=== PATIENT | female | born 1985 | race Caucasian/White ===

== ENCOUNTER 2019-09-05 12:05 | Observation (INO) ==
--- NOTE | 2019-09-05 13:02 | Emergency Department Note ---
Entered by Shon Barba acting as a scribe for History of Present Illness General Chief complaint: Infection, Wound Stated complaint: RASH,OPEN WOUNDS, DOCTOR THINGS SHE SEPTIC Time Seen by Provider: 09/05/19 12:39 Source: patient and other (family practice nurse practitioner) History of Present Illness Onset (ago): unknown (a while ago) Location: upper extremity Pain Consistency: + constant Maximum Pain Intensity: 9 Quality: + other (rash) Associated symptoms: + other (Positive for SOB, chils, and unusual vaginal spotting.) The patient is a 34 year old female who presents to the emergency department with complaints of a constant rash beginning a while ago. Per family practice nurse practitioner, the patient started retaining fluids two months ago. She states that the patient was placed on an antibiotic for cellulitis on her legs, and she notes that the patient has a rash all over her body. She reports that the patient saw her PCP today, and she states that the patient was referred to the ED for her rash and possible sepsis. The patient also complains of SOB and chills. She notes that she had vaginal spotting for three weeks which was unusual, and she reports that her doctors told her that she needs a hysterectomy. The patient states that she also has a history of anxiety, and she notes that she takes Lasix. Home Medications Home Medications Medication Instructions Recorded Confirmed Type buspirone 7.5 mg PO BID 09/05/19 09/05/19 History furosemide 80 mg PO QAM 09/05/19 09/05/19 History potassium chloride 10 meq PO QAM 09/05/19 09/05/19 History Allergies Allergy/AdvReac Type Severity Reaction Status Date / Time cefaclor Allergy Unknown Verified 09/05/19 14:39 Penicillins Allergy Unknown Verified 09/05/19 14:39 amoxicillin Allergy Hives Unverified 09/05/19 14:39 cefdinir [From Omnicef] Allergy Hives Unverified 09/05/19 14:39 ciprofloxacin Allergy Hives Unverified 09/05/19 14:39 clindamycin Allergy Hives Unverified 09/05/19 14:39 Past Med/Surg History Medical History (Updated 09/05/19 @ 16:14 by Jeremiah Gates DO) Anxiety delivery delivered (Resolved) Fracture of ulnar styloid (Acute) Surgical History (Updated 09/05/19 @ 13:33 by Shon Barba) S/P cholecystectomy (Resolved) Family History (Updated 09/05/19 @ 13:33 by Shon Barba) Other No significant family history Social History Preferred Language: Uzbek Communication Ability: Effective Chief Specialist Leed Required: No Beliefs That Will Affect Care: None Current Living Situation: Alone Other Information That Helps Us Care for You: No Feels Safe at Home: Yes Safety Concerns: Feels Safe At This Time Smoking Status: Current every day smoker Tobacco Type: cigarettes ; Do You Dip or Chew Tobacco: No ; Second Hand Exposure: No ; Tobacco Cessation Education Requested by Patient: No Hx Alcohol Use: No Hx Substance Use: No Review of Systems See HPI for pertinent positives & negatives. and A total of 10 systems reviewed and were otherwise negative Physical Exam Vital Signs Vital Signs - 24 hr 09/05/19 12:12 09/05/19 12:46 09/05/19 12:49 Temperature 36.5 C Temperature Source Oral Pulse Rate 120 H 78 112 H Pulse Rhythm Regular Respiratory Rate 24 19 Respiratory Effort / Characteristics Non-Labored Respiratory Depth Normal Blood Pressure 144/72 H Blood Pressure Mean 96 Blood Pressure Position Sitting Pulse Oximetry 97 97 Oxygen Delivery Method Room Air Room Air Sepsis Recent Fever Within 48 Hours No Sepsis New/Unexplained Change in Mental Status No Sepsis Action Taken by Nursing No Action Required 09/05/19 13:00 09/05/19 13:09 09/05/19 13:10 Temperature Temperature Source Pulse Rate 103 H 109 H 107 H Pulse Rhythm Respiratory Rate 18 18 23 Respiratory Effort / Characteristics Respiratory Depth Blood Pressure 128/89 136/74 Blood Pressure Mean 111 94 Blood Pressure Position Pulse Oximetry 99 Oxygen Delivery Method Sepsis Recent Fever Within 48 Hours Sepsis New/Unexplained Change in Mental Status Sepsis Action Taken by Nursing 09/05/19 14:06 09/05/19 14:31 09/05/19 14:57 Temperature Temperature Source Pulse Rate 113 H 109 H 107 H Pulse Rhythm Respiratory Rate 23 24 21 Respiratory Effort / Characteristics Respiratory Depth Blood Pressure 138/76 134/75 130/78 Blood Pressure Mean 96 94 87 Blood Pressure Position Pulse Oximetry 97 98 98 Oxygen Delivery Method Sepsis Recent Fever Within 48 Hours Sepsis New/Unexplained Change in Mental Status Sepsis Action Taken by Nursing 09/05/19 14:58 09/05/19 14:59 09/05/19 15:00 Temperature Temperature Source Pulse Rate 106 H 109 H 106 H Pulse Rhythm Respiratory Rate 21 16 21 Respiratory Effort / Characteristics Respiratory Depth Blood Pressure 150/98 H 134/75 Blood Pressure Mean 106 92 Blood Pressure Position Pulse Oximetry Oxygen Delivery Method Sepsis Recent Fever Within 48 Hours Sepsis New/Unexplained Change in Mental Status Sepsis Action Taken by Nursing 09/05/19 15:01 09/05/19 15:30 09/05/19 15:31 Temperature Temperature Source Pulse Rate 111 H 110 H 111 H Pulse Rhythm Respiratory Rate 16 31 H 23 Respiratory Effort / Characteristics Respiratory Depth Blood Pressure 164/87 H Blood Pressure Mean 113 Blood Pressure Position Pulse Oximetry Oxygen Delivery Method Sepsis Recent Fever Within 48 Hours Sepsis New/Unexplained Change in Mental Status Sepsis Action Taken by Nursing 09/05/19 16:00 09/05/19 16:01 Temperature Temperature Source Pulse Rate 110 H 108 H Pulse Rhythm Respiratory Rate 20 20 Respiratory Effort / Characteristics Respiratory Depth Blood Pressure 144/87 H Blood Pressure Mean 111 Blood Pressure Position Pulse Oximetry Oxygen Delivery Method Sepsis Recent Fever Within 48 Hours Sepsis New/Unexplained Change in Mental Status Sepsis Action Taken by Nursing GENERAL: Patient is awake alert in no acute distress patient is resting comfortably and showing no signs of anxiety EYES: The conjunctivae are clear. The pupils are round and reactive. EARS, NOSE, MOUTH AND THROAT: The nose is without any evidence of any deformity. Mucous membranes are moist. Tongue is midline. NECK: The neck is nontender and supple. RESPIRATORY: Normal respiratory effort is noted there is no evidence of wheezing rhonchi or rales CARDIOVASCULAR: Tachycardic rate with regular rhythm was noted. There is no d efinite murmur. GASTROINTESTINAL: The abdomen is soft. Abdomen is nontender. BACK: No midline tenderness or or step-off noted range of motion in flexion extension as well as rotation no signs of muscle spasm noted MUSCULOSKELETAL/EXTREMITIES: There is no evidence of gross deformity full range of motion is noted in the hips and shoulders. SKIN: There is bilateral lower extremity edema. There is an excoriated rash noted over all extremities. There is significant erythema in the right lower extremity compared to the left. There is significant signs of cellulitis in both lower extremities right greater than left. Pulses are symmetric in both feet. NEUROLOGIC: Patient is awake alert and oriented x3. Course Course 1240: The patient was evaluated in room C12. A complete history and physical exam was performed. 1517: Upon reevaluation, the patient is stable. I discussed the findings and the treatment plan with the patient. She expresses agreement and understanding. I spoke with Dr. Gates of the [facility] Hospitalist Service. The patient will be evaluated for further management. Consultations Consultation #1: I reviewed the patient's case with Dr. Gates - Hospitalist, [facility]. He will evaluate the patient for further management. Time: 15:17 Administered Medications Discontinued Medications Diphenhydramine HCl (Benadryl) 25 mg IV NOW STA Stop: 09/05/19 15:07 Last Admin: 09/05/19 15:14 Dose: 25 mg Documented by: [id number] Sodium Chloride (Nss 1000ml) 1,000 mls @ 999 mls/hr IV .Q1H1M ONE Stop: 09/05/19 16:06 Last Infusion: 09/05/19 16:45 Dose: 0 mls/hr Documented by: [id number] Admin: 09/05/19 15:14 Dose: 999 mls/hr Documented by: [id number] Daptomycin 600 mg/ Syringe 12 mls @ 6 mls/min IV NOW ONE; Protocol Stop: 09/05/19 15:31 Last Admin: 09/05/19 16:10 Dose: 6 mls/min Documented by: [id number] Medical Decision Making Differential Diagnosis Differential diagnosis includes etiologies such as cellulitis, abscess, MRSA infection, DVT, necrotizing fasciitis, dermatitis, drug eruption, as well as others were entertained. Medical Records Attestation: I reviewed the patient's medical records. Home Medications Current Medication List: was personally reviewed by me Laboratory Data Attestation: I reviewed the patient's lab results. Result diagrams: 09/05/19 12:56 09/05/19 12:56 Lab Results 09/05/19 09/05/19 09/05/19 Range/Units 12:56 12:56 12:56 WBC 11.38 H (4.8-10.8) K/uL RBC 5.87 H (4.2-5.4) M/uL Hgb 16.3 H (12.0-16.0) g/dL Hct 49.2 H (37-47) % MCV 83.8 (80-100) fL MCH 27.8 (25-34) pg MCHC 33.1 (32-36) g/dL RDW Std Deviation 48.4 H (36.4-46.3) fL RDW Coeff of Luis 16.1 H (11.5-14.5) % Plt Count 379 (130-400) K/uL MPV 9.8 (7.4-10.4) fL Immature Gran % (Auto) 0.4 % Neut % (Auto) 61.0 % Lymph % (Auto) 23.7 % [place] % (Auto) 4.7 % Eos % (Auto) 9.8 % Baso % (Auto) 0.4 % Immature Gran # (Auto) 0.04 H (0.00-0.02) K/uL Neut # (Auto) 6.95 H (1.4-6.5) K/uL Lymph # (Auto) 2.70 (1.2-3.4) K/uL [place] # (Auto) 0.53 (0.11-0.59) K/uL Eos # (Auto) 1.12 H (0-0.5) K/uL Baso # (Auto) 0.04 (0-0.2) K/uL PT 9.8 (9.0-12.0) Seconds INR 1.0 (0.9-1.1) APTT 27.6 (21.0-31.0) Seconds PTT Ratio 1.0 Sodium 138 (136-145) mmol/L Potassium 3.8 (3.5-5.1) mmol/L Chloride 101 (98-107) mmol/L Carbon Dioxide 29 (21-32) mmol/L Anion Gap 8.0 (3-11) BUN 14 (7-18) mg/dl Creatinine 0.69 (0.6-1.2) mg/dl Est Cr Clr Drug Dosing 180.5 ml/min Est GFR ( Amer) 129.8 Est GFR (Non-Af Amer) 112.0 BUN/Creatinine Ratio 19.7 (10-20) Glucose 137 H (70-99) mg/dl Lactate (0.4-2.0) mmol/L Calcium 9.3 (8.5-10.1) mg/dl Magnesium 1.7 L (1.8-2.4) mg/dl Total Bilirubin 0.5 (0.2-1) mg/dl AST 19 (15-37) U/L ALT 29 (12-78) U/L Alkaline Phosphatase 104 (45-117) U/L Troponin I < 0.015 (0-0.045) ng/ml NT-Pro-B Natriuret Pep 12 (0-450) pg/ml Total Protein 7.5 (6.4-8.2) gm/dl Albumin 3.3 L (3.4-5.0) gm/dl Globulin 4.2 H (2.5-4.0) gm/dl Albumin/Globulin Ratio 0.8 L (0.9-2) Procalcitonin (0-0.5) ng/ml HCG, Qual (Negative) Urine Color Urine Appearance (Clear) Urine pH (4.5-7.5) Ur Specific [place] (1.000-1.030) Urine Protein (Negative) Urine Glucose (UA) (Negative) Urine Ketones (Negative) Urine Blood (Negative) Urine Nitrite (Negative) Urine Bilirubin (Negative) Urine Urobilinogen (Negative) Ur Leukocyte Esterase (Negative) Urine WBC (Auto) (0-5) /hpf Urine RBC (Auto) (0-4) /hpf U Hyaline Cast (Auto) (0-5) /lpf U Epithel Cells (Auto) (0-5) /lpf Urine Bacteria (Auto) (Negative) 09/05/19 09/05/19 09/05/19 Range/Units 12:56 12:56 13:00 WBC (4.8-10.8) K/uL RBC (4.2-5.4) M/uL Hgb (12.0-16.0) g/dL Hct (37-47) % MCV (80-100) fL MCH (25-34) pg MCHC (32-36) g/dL RDW Std Deviation (36.4-46.3) fL RDW Coeff of Luis (11.5-14.5) % Plt Count (130-400) K/uL MPV (7.4-10.4) fL Immature Gran % (Auto) % Neut % (Auto) % Lymph % (Auto) % [place] % (Auto) % Eos % (Auto) % Baso % (Auto) % Immature Gran # (Auto) (0.00-0.02) K/uL Neut # (Auto) (1.4-6.5) K/uL Lymph # (Auto) (1.2-3.4) K/uL Valencia # (Auto) (0.11-0.59) K/uL Eos # (Auto) (0-0.5) K/uL Baso # (Auto) (0-0.2) K/uL PT (9.0-12.0) Seconds INR (0.9-1.1) APTT (21.0-31.0) Seconds PTT Ratio Sodium (136-145) mmol/L Potassium (3.5-5.1) mmol/L Chloride (98-107) mmol/L Carbon Dioxide (21-32) mmol/L Anion Gap (3-11) BUN (7-18) mg/dl Creatinine (0.6-1.2) mg/dl Est Cr Clr Drug Dosing ml/min Est GFR ( Amer) Est GFR (Non-Af Amer) BUN/Creatinine Ratio (10-20) Glucose (70-99) mg/dl Lactate 2.7 H* (0.4-2.0) mmol/L Calcium (8.5-10.1) mg/dl Magnesium (1.8-2.4) mg/dl Total Bilirubin (0.2-1) mg/dl AST (15-37) U/L ALT (12-78) U/L Alkaline Phosphatase (45-117) U/L Troponin I (0-0.045) ng/ml NT-Pro-B Natriuret Pep (0-450) pg/ml Total Protein (6.4-8.2) gm/dl Albumin (3.4-5.0) gm/dl Globulin (2.5-4.0) gm/dl Albumin/Globulin Ratio (0.9-2) Procalcitonin < 0.05 (0-0.5) ng/ml HCG, Qual Negative (Negative) Urine Color Yellow Urine Appearance Cloudy A (Clear) Urine pH 5.0 (4.5-7.5) Ur Specific [place] 1.016 (1.000-1.030) Urine Protein Negative (Negative) Urine Glucose (UA) Negative (Negative) Urine Ketones Negative (Negative) Urine Blood Negative (Negative) Urine Nitrite Negative (Negative) Urine Bilirubin Negative (Negative) Urine Urobilinogen Negative (Negative) Ur Leukocyte Esterase 2+ H (Negative) Urine WBC (Auto) 10-30 H (0-5) /hpf Urine RBC (Auto) 5-10 H (0-4) /hpf U Hyaline Cast (Auto) 1-5 (0-5) /lpf U Epithel Cells (Auto) >30 H (0-5) /lpf Urine Bacteria (Auto) Negative (Negative) Imaging Data Radiologist's Impression: Radiology results as stated below per my review and the radiologist's interpretation: XR chest 1V portable FINDINGS: Lung volumes are normal. Lungs are clear. There is no pneumothorax or pleural effusion. Cardiac size is normal. Mediastinal contours are normal. There is no evidence for pulmonary edema. IMPRESSION: No acute cardiopulmonary findings. ACT 112: Negative or not required by law. Electronically signed by: Saul Santo M.D. 09/05/2019 1:27 PM BILATERAL LOWER EXTREMITY VENOUS DOPPLER FINDINGS: There is normal compressibility, flow, and augmentation within the bilateral lower extremity deep venous systems. Limited study secondary to patient body habitus and subcutaneous edema of the lower extremities. IMPRESSION: No DVT within the right or left lower extremity. ACT 112: Negative or not required by law. Electronically signed by: Bar Leahy M.D. 09/05/2019 2:18 PM ECG Data Attestation: I personally reviewed and interpreted this ECG as follows: Indication: + SOB/dyspnea Rate (beats per minute): 108 Rhythm: + sinus tachycardia ECG Findings: no PACs and no PVCs Comparison ECG Date: no prior available Additional Comments: No acute ST segments. Blood Pressure Blood Pressure Findings: Elevated blood pressure Blood Pressure Disposition: further management by hospitalist [facility] Narrative The patient is a 34-year-old female who presented to the emergency department for an evaluation of lower extremity swelling and redness. The patient's histo ry and physical exam appear to be consistent with ongoing lower extremity edema with worsening cellulitis especially the right lower extremity. She was seen by her primary care physician and was also seen in multiple emergency departments. She was recently taking a quinolone as well as clindamycin for cellulitis but symptoms appear to be worsening. She was referred to our emergency department t katherine. The patient was treated with IV fluids and IV antibiotics in the emergency department. I discussed the patient's laboratory and radiographic studies with her. Despite having multiple antibiotic regimens she does not appear to be improving. For this reason I discussed her case with the on-call [facility] hospitalist group. They have agreed to evaluate the patient in the emergency department for further management and disposition. Impression & Plan Cellulitis, Acidosis, lactic Discharge Plan Visit Data *Final* Discharge Date/Time: 09/05/19 18:23 Chief Complaint: Infection, Wound Stated Complaint: RASH,OPEN WOUNDS, DOCTOR THINGS SHE SEPTIC ED Provider: López Knight Discharge Problem: Cellulitis, Acidosis, lactic Patient Disposition: Admitted As Inpatient Discharge Instructions Interventions: ED Discharge Assessment Last Done: 09/05/19 18:23 Discharge Problem: Cellulitis Qualifiers: Site of cellulitis: extremity Site of cellulitis of extremity: lower extremity Laterality: right Qualified Code(s): L03.115 - Cellulitis of right lower limb The scribe's documentation has been prepared under my direction and personally reviewed by me in its entirety. I confirm that the note above accurately reflects all work, treatment, procedures, and medical decision making performed by me.
[2019-09-05 13:08] LABS: Basophils # (auto) 0.04 K/uL (0-0.2); Basophils % (auto) 0.4 %; Eosinophils # (auto) 1.12 K/uL (0-0.5); Eosinophils % (auto) 9.8 %; Hematocrit (blood only) 49.2 % (37-47); Hemoglobin 16.3 g/dL (12.0-16.0); Immature Granulocytes # (auto) 0.04 K/uL (0.00-0.02); Immature Granulocytes % (auto) 0.4 %; Lymphocytes % (auto) 23.7 %; Mean Corpuscular Hemoglobin 27.8 pg (25-34); Mean Corpuscular Hgb Conc 33.1 g/dL (32-36); Mean Corpuscular Volume 83.8 fL (80-100); Mean Platelet Volume 9.8 fL (7.4-10.4); Monocytes # (auto) 0.53 K/uL (0.11-0.59); Monocytes % (auto) 4.7 %; Neutrophils # (auto) 6.95 K/uL (1.4-6.5); Platelet Count 379 K/uL (130-400); RDW Coefficient of Variation 16.1 % (11.5-14.5); RDW Standard Deviation 48.4 fL (36.4-46.3); Red Blood Count 5.87 M/uL (4.2-5.4); White Blood Count 11.38 K/uL (4.8-10.8)
[2019-09-05 13:24] LABS: Appearance Urine Cloudy (Clear); Bacteria Urine Automated Negative (Negative); Bilirubin Urine Negative (Negative); Blood Urine Negative (Negative); Color Urine Yellow; Epithelial Cell Urine Auto >30 /lpf (0-5); Glucose Urine UA Negative (Negative); Ketones Urine Negative (Negative); Leukocyte Esterase Urine 2+ (Negative); Nitrite Urine Negative (Negative); Protein Urine Negative (Negative); Specific Gravity Urine 1.016 (1.000-1.030); Urobilinogen Urine Negative (Negative)
[2019-09-05 13:25] LABS: Alanine Aminotransferase 29 U/L (12-78); Albumin Level 3.3 gm/dl (3.4-5.0); Aspartate Aminotransferase 19 U/L (15-37); BUN Creatinine Ratio 19.7 (10-20); Blood Urea Nitrogen 14 mg/dl (7-18); Calcium 9.3 mg/dl (8.5-10.1); Carbon Dioxide 29 mmol/L (21-32); Chloride 101 mmol/L (98-107); Creatinine Clr Calc Pharmacy 180.5 ml/min; Est GFR (African American) 129.8; Glucose 137 mg/dl (70-99); Magnesium 1.7 mg/dl (1.8-2.4); Potassium 3.8 mmol/L (3.5-5.1); Sodium 138 mmol/L (136-145)
--- NOTE | 2019-09-05 13:29 | XRay Report ---
XR chest 1V portable CLINICAL HISTORY: SEPSIS COMPARISON STUDY: Chest radiograph April 19, 2015. FINDINGS: Lung volumes are normal. Lungs are clear. There is no pneumothorax or pleural effusion. Car diac size is normal. Mediastinal contours are normal. There is no evidence for pulmonary edema. IMPRESSION: No acute cardiopulmonary findings. ACT 112: Negative or not required by law. Electronically signed by: Saul Santo M.D. 09/05/2019 1:27 PM
[2019-09-05 13:30] LABS: Albumin Globulin Ratio 0.8 (0.9-2); Alkaline Phosphatase 104 U/L (45-117); Bilirubin,Total 0.5 mg/dl (0.2-1); Globulin 4.2 gm/dl (2.5-4.0); NT Pro B Type Natriuretic Pept 12 pg/ml (0-450); Partial Thromboplastin Time 27.6 Seconds (21.0-31.0); Prothrombin Time 9.8 Seconds (9.0-12.0); Total Protein 7.5 gm/dl (6.4-8.2); Troponin I < 0.015 ng/ml (0-0.045)
[2019-09-05 13:41] LABS: Pregnancy Test, Serum Negative (Negative)
[2019-09-05 14:00] LABS: Procalcitonin < 0.05 ng/ml (0-0.5)
--- NOTE | 2019-09-05 14:20 | Ultrasound Report ---
BILATERAL LOWER EXTREMITY VENOUS DOPPLER HISTORY: Acute pain and swelling of the lower extremities sent by PCP for possible DVT COMPARISON STUDY: None. FINDINGS: There is normal compressibility, flow, and augmentation within the bilateral lower extremit y deep venous systems. Limited study secondary to patient body habitus and subcutaneous edema of the lower extremities. IMPRESSION: No DVT within the right or left lower extremity. ACT 112: Negative or not required by law. Electronically signed by: Bar Leahy M.D. 09/05/2019 2:18 PM
--- NOTE | 2019-09-05 15:05 | Electrocardiogram Report ---
Test Reason : Blood Pressure : / mmHG Vent. Rate : 108 BPM Atrial Rate : 108 BPM P-R Int : 154 ms QRS Dur : 078 ms QT Int : 336 ms P-R-T Axes : 053 015 034 degrees QTc Int : 450 ms Sinus tachycardia Poor R wave progression, consider anterior OK vs. lead placement vs. LVH Abnormal ECG No previous ECGs available Confirmed by Donny Willis ([id number]) on 09/05/2019 3:04:28 PM Referred By: ED Confirmed By:Ventura Willis
[2019-09-05] MEDS ORDERED: DiphenhydrAMINE HCL 50 MG/ML VIAL IV STA (15:06)
[2019-09-05] MEDS ORDERED: SODIUM CHLORIDE 0.9% 1000ML 1,000 ML IV ONE (15:06)
[2019-09-05] MEDS ORDERED: VANCOMYCIN HCL 2,750 MG in SODIUM CHLORIDE 0.9% 500 ML IV ONE (15:10)
[2019-09-05] MEDS ORDERED: VANCOMYCIN CONSULT ACTIVE PRN ×2 (15:10→18:08)
[2019-09-05] MEDS ORDERED: DAPTOmycin 600 MG in SYRINGE 0 ML IV ONE (15:30)
--- NOTE | 2019-09-05 16:15 | History & Physical Report ---
Date of Service September 05, 2019 Assessment & Plan (1) Cellulitis: Patient right lower extremity cellulitis. DVT panel is negative. Agree with IV vancomycin for now. Can monitor over the next 24-48 hours and if improvement, consider changing over to oral medication. Consideration to inf ectious disease consultation considering patient's allergy list and failure of multiple oral antibiotics. (2) Dermatitis: Patient with full body dermatitis, consider drug eruption versus possible full-body contact dermatitis. Will order as needed Benadryl. May benefit from a short course of oral steroids and will start this as well. Patient is encouraged not to scratch as this may make her rash worse. History of Present Illness Primary Care Provider: Caleb Perdomo This is a 34-year-old female with past medical history of super morbid obesity that presents today from her PCP with a chief complaint of cellulitis. Patient is a decent historian is accompanied by her mother. Patient has had a macular rash over her body for the past 2 weeks. This is extremely pruritic and she has been scratching at it constantly. Covers her chest arms abdomen and legs. Over the past week and a half she is noticed worsening erythema in her right lower extremity. This extends from the romo below the knee down to the foot. There is some small open areas that have been draining serous fluid, especially when the leg is dependent. She has had no systemic symptoms such as fevers or chills. Patient had been started on Cipro and clindamycin approximately 8 days ago, for which she has been compliant. However, she feels that this not helped the edema at all. Her physician saw her today and was concerned that she may be septic and recommended that she presented to the emergency room for further evaluation. The time my evaluation, patient is extremely itchy due to the rash. She is afebrile. I do note that she is mildly hypertensive at 150/98. Patient was given a dose of vancomycin in the emergency room. Allergies Allergy/AdvReac Type Severity Reaction Status Date / Time cefaclor Allergy Unknown Verified 09/05/19 14:39 Penicillins Allergy Unknown Verified 09/05/19 14:39 amoxicillin Allergy Hives Unverified 09/05/19 14:39 cefdinir [From Omnicef] Allergy Hives Unverified 09/05/19 14:39 ciprofloxacin Allergy Hives Unverified 09/05/19 14:39 clindamycin Allergy Hives Unverified 09/05/19 14:39 Home Medications Home Medications Medication Instructions Recorded Confirmed Type buspirone 7.5 mg PO BID 09/05/19 09/05/19 History furosemide 80 mg PO QAM 09/05/19 09/05/19 History potassium chloride 10 meq PO QAM 09/05/19 09/05/19 History Past Med/Surg History Medical History (Updated 09/05/19 @ 16:14 by Jeremiah Gates DO) Anxiety delivery delivered (Resolved) Fracture of ulnar styloid (Acute) Surgical History (Updated 09/05/19 @ 13:33 by Shon Barba) S/P cholecystectomy (Resolved) Family History (Updated 09/05/19 @ 13:33 by Shon Barba) Other No significant family history Social History Preferred Language: Czech Feels Safe at Home: Yes Smoking Status: Current every day smoker Review of Systems Constitutional: no fever, no chills, no weakness, no weight loss and no weight gain Eyes: as per Subjective / HPI Respiratory: no cough, no chest congestion, no dyspnea and no dyspnea on exertion Cardiovascular: no chest pain, no orthopnea, no palpitations, no lightheadedness and no edema Gastrointestinal: no abdominal pain, no nausea, no vomiting, no constipation and no diarrhea/loose stools Genitourinary: no dysuria, no difficulty urinating, no urinary frequency, no urinary hesitancy, no urinary urgency and no flank pain Musculoskeletal: no back pain, no neck pain, no joint pain, no stiffness and no myalgia Integumentary: + rash, + lesions and + urticaria Neurologic: no gait abnormality, no unsteadiness, no falls and no generalized weakness Physical Exam Constitutional: + morbidly obese and cooperative; no acute distress Neck: trachea midline, no thyromegaly Respiratory: normal respiratory effort Auscultation: lungs clear to auscultation bilaterally; no crackles, no rales, no rhonchi and no wheezes Cardiovascular: Rate/Rhythm: regular rate and regular rhythm Heart Sounds: normal S1 and normal S2 Gastrointestinal (Abdomen): Inspection/Auscultation: abdomen normal to inspection Percussion/Palpation: abdomen soft; abdomen nontender, no guarding, abdomen not rigid and no hepatosplenomegaly Musculoskeletal: On the right lower extremity, patient has increasing erythema with minimal induration. Areas of excoriation. Near the heel there are several cysts very small open areas with evidence of recent drainage but appear to be crusted at this time. Skin: + rash (Extensive macular rash on her chest, arms, legs, and abdomen. Evidence of excoriation in all these areas.) Results & Data Vital Signs (Past 12 Hours) Vital Signs Temp Pulse Resp BP Pulse Ox 09/05/19 14:58 106 H 21 150/98 H 09/05/19 14:57 107 H 21 130/78 98 09/05/19 14:31 109 H 24 134/75 98 09/05/19 14:06 113 H 23 138/76 97 09/05/19 13:10 107 H 23 136/74 99 09/05/19 13:09 109 H 18 128/89 09/05/19 13:00 103 H 18 09/05/19 12:49 112 H 19 09/05/19 12:46 78 97 09/05/19 12:12 36.5 C 120 H 24 144/72 H 97 Laboratory Results WBC is 11.38. Hemoglobin is 6.3 with hematocrit 49.2. Platelets of 379. BMP is normal. Lactate is 2.7 UA is cloudy with 2+ leuk esterases and 13-30 WBCs. Over 30 epithelial cells noted. Diagnostic Findings BILATERAL LOWER EXTREMITY VENOUS DOPPLER HISTORY: Acute pain and swelling of the lower extremities sent by PCP for possible DVT COMPARISON STUDY: None. FINDINGS: There is normal compressibility, flow, and augmentation within the bilateral lower extremity deep venous systems. Limited study secondary to patient body habitus and subcutaneous edema of the lower extremities. IMPRESSION: No DVT within the right or left lower extremity. --- XR chest 1V portable CLINICAL HISTORY: SEPSIS COMPARISON STUDY: Chest radiograph April 19, 2015. FINDINGS: Lung volumes are normal. Lungs are clear. There is no pneumothorax or pleural effusion. Cardiac size is normal. Mediastinal contours are normal. There is no evidence for pulmonary edema. IMPRESSION: No acute cardiopulmonary findings. PG Care Time/CCT Total # of Minutes Spent Total Time Spent with Patient: Total time spent is greater than 50% in coordination of care (as documented) at patient's floor/unit and/or counseling patient: Coding Level of Care Code 44640 OBS Care - Level 3 Diagnoses Cellulitis L03.115 Laterality: right Site of cellulitis: extremity Site of cellulitis of extremity: lower extremity Dermatitis L30.9 (1) Cellulitis Laterality: right Site of cellulitis: extremity Site of cellulitis of extremity: lower extremity Qualified Code(s): L03.115 - Cellulitis of right lower limb
[2019-09-05] MEDS ORDERED: ONDANSETRON INJ 2 MG/ML 2 ML VIAL IV PRN (18:08)
[2019-09-05] MEDS ORDERED: VANCOMYCIN HCL 1,000 MG/270 ML BAG IV SCH (18:08)
[2019-09-05] MEDS: predniSONE 20 MG TAB PO SCH (19:59)
[2019-09-05] MEDS: BUSPIRONE HCL 7.5 MG TAB PO SCH (20:01)
[2019-09-05] MEDS ORDERED: ENOXAPARIN INJ 40 MG/0.4 ML SYR SQ SCH (21:00)
[2019-09-06] MEDS ORDERED: DiphenhydrAMINE HCL 50 MG/ML VIAL IV STA (03:36)
[2019-09-06] MEDS: POTASSIUM CHLORIDE 10 MEQ TABCR PO SCH (08:47)
[2019-09-06] MEDS: BUSPIRONE HCL 7.5 MG TAB PO SCH ×2 (08:47→20:52)
[2019-09-06] MEDS: predniSONE 20 MG TAB PO SCH (08:48)
[2019-09-06] MEDS: FUROSEMIDE 80 MG TAB PO SCH (08:48)
[2019-09-06 08:51] LABS: Basophils # (auto) 0.03 K/uL (0-0.2); Basophils % (auto) 0.2 %; Eosinophils # (auto) 0.75 K/uL (0-0.5); Hemoglobin 14.8 g/dL (12.0-16.0); Immature Granulocytes # (auto) 0.06 K/uL (0.00-0.02); Immature Granulocytes % (auto) 0.4 %; Lymphocytes # (auto) 2.29 K/uL (1.2-3.4); Lymphocytes % (auto) 15.3 %; Mean Corpuscular Hemoglobin 27.4 pg (25-34); Mean Corpuscular Hgb Conc 32.9 g/dL (32-36); Mean Corpuscular Volume 83.3 fL (80-100); Mean Platelet Volume 9.4 fL (7.4-10.4); Monocytes # (auto) 0.62 K/uL (0.11-0.59); Monocytes % (auto) 4.1 %; Neutrophils # (auto) 11.24 K/uL (1.4-6.5); Platelet Count 390 K/uL (130-400); RDW Coefficient of Variation 15.9 % (11.5-14.5); RDW Standard Deviation 47.8 fL (36.4-46.3); White Blood Count 14.99 K/uL (4.8-10.8)
--- NOTE | 2019-09-06 09:13 | Allergy & Immunology Consult ---
Date of Consultation September 06, 2019 Assessment & Plan (1) Dermatitis: She presents with a rash for about two weeks duration that has been worsening in nature and associated with elevated blood eosinophils in the range of 1120-750 cells per micro L. the differential diagnosis would include a number of different things includin. Drug allergy. She has been on the furosemide for quite a while. The likelihood of this causing a reaction is relatively low, but still a possibility. If the rash ends up being difficult to resolve, I would recommend we switch to a different medication. She has also been on a combination of Cipro and clindamycin, and it is not clear whether the eosinophilia could represent an allergy to either of these. The rash preceeded these, so I think the likelihood is low. I recommend we continue to avoid these for now, and may need to perform patch testing in the future determine whether there is any emerging sensitivity to either of these. 2. Contact dermatitis. Once her rash resolves, we should consider patch testing, as this may result in a similar dermatitis. This could either be the result of a local contact dermatitis with an id reaction that could be widespread, or the case of certain metals like nickel, patient's could develop a widespread dermatitis. We should be able to determine this based on her patch test results. 3. Infectious cause. There are a few potential infectious etiologies that we could consider. It is possible to develop wide spread rashes from staph or strep. Fungal skin infections can lead to id reactions that can cause more widespread rashes. Given the intense itching, scabies would be in the differential. I do not observe any significant findings based on her finger and hand exam, but is certainly would be in the differential if the symptoms did not respond to prednisone. 4. Paraneoplastic rash. Given her reported concerned about possible uterine cancer, I would consider the possibility of a paraneoplastic rash. She does not have an established diagnosis cancer, however, and as result this would be lower down on the list of differentials. 5. Hypereosinophilic syndrome: The blood eosinophil level was not in the range that I would be concerned about this. If it goes above 1500 cells/mcl, I would reconsider. She denies any travel and lack of GI symptoms that would make his consider parasitic infection. If she starts to develop any diarrhea, we could send the stool for ova and parasites. I anticipate that with a combination of antibiotics and a course of prednisone, that the rash would significantly improve and we would treat most of his things on the differential diagnosis. Once the rash is better, we should perform allergy testing as an outpatient, and I will set this up. Ideally, we would like to have her off prednisone for about two weeks to do allergy testing. I believe that she would do well with a taper starting at 40 mg and taper by 10 mg every 3 days. Regarding the history of drug reaction to amoxicillin and cefdinir, these complicate the choice of an oral antibiotic. In this setting, we would often consider skin testing, but I believe that that would be very difficult given the underlying rash. We typically need to have clear skin before performing skin testing. I suspect that she would be able tolerate cephalexin. This has low cross-reactivity the Penicillin family, and I would also anticipate low cross- reactivity with a 3rd generation cephalosporin like cefdinir. I recommend we also perform antibiotic skin testing will be see her as an outpatient to try to clear her penicillin and cefdinir allergies. If either of these medications are needed in the hospital, we could consider a graded challenge without skin testing. (2) Cellulitis: (3) Eosinophilia: History of Present Illness Will she has never had a rash Attending Physician: Alyse Mckeon MD History of Present Illness This is a 34-year-old female with a past medical history significant for obesity the presents with a rash of about two weeks duration. She 1st noticed erythema over both lower extremities and saw her PCP for concern of a cellulitis. Initially this was not treated with antibiotics and was being observed. After a few days, she developed an erythematous, itchy rash distinct from the initial rash in the legs. The rash 1st started on both arms and her under arms and then spread to the rest of her body. She now has it everywhere, though the face has not been affected. There are no oral lesions. There are no significant lesions on the palms or soles. She does not describe any target lesions. The rash is very itchy and she has been scratching all over. She denies any associated symptoms and has not had any GI symptoms like diarrhea, no fevers, no chills. She does have a few areas that she has noted under the right breast that have somewhat painful and are red and swollen. She also has noted an area on the right upper abdomen that may be a small ulcer. She says that there is a concern about a potential of uterine cancer and she has been getting a lot of bleeding. She is currently being worked up for this. She has not identified any triggers for the rash. She denies any new medications. She has been on furosemide, and has been on this medication for a number of months before the rash started. She is also on buspirone, but this was started after the rash. The cellulitis was treated with a combination clindamycin as ciprofloxacin, started about one week ago. The rash preceded these medications. She has not had any sick contacts and a in her household has had a similar rash. She has never had a rash like this before, though she has had poison michael in the past. She denies any exposures like this or any new changes to laundry detergents or lotions. She does have a history of multiple antibiotic allergies. She previously has had hives with cefdinir and amoxicillin. Allergies Allergy/AdvReac Type Severity Reaction Status Date / Time cefaclor Allergy Unknown Verified 09/05/19 14:39 Penicillins Allergy Unknown Verified 09/05/19 14:39 amoxicillin Allergy Hives Unverified 09/05/19 14:39 cefdinir [From Omnicef] Allergy Hives Unverified 09/05/19 14:39 ciprofloxacin Allergy Hives Unverified 09/05/19 14:39 clindamycin Allergy Hives Unverified 09/05/19 14:39 Home Medications Home Medications Medication Instructions Recorded Confirmed Type buspirone 7.5 mg PO BID 09/05/19 09/05/19 History furosemide 80 mg PO QAM 09/05/19 09/05/19 History potassium chloride 10 meq PO QAM 09/05/19 09/05/19 History Patient History Medical History (Updated 09/06/19 @ 11:09 by Sanjeev Price MD) Anxiety delivery delivered (Resolved) Fracture of ulnar styloid (Acute) Surgical History (Updated 09/05/19 @ 13:33 by Shon Barba) S/P cholecystectomy (Resolved) Family History (Updated 09/05/19 @ 13:33 by Shon Barba) Other No significant family history Social History Preferred Language: Spanish Communication Ability: Effective Rn Interventional Required: No Beliefs That Will Affect Care: None Current Living Situation: Alone Other Information That Helps Us Care for You: No Feels Safe at Home: Yes Safety Concerns: Feels Safe At This Time Smoking Status: Current every day smoker Tobacco Type: cigarettes ; Do You Dip or Chew Tobacco: No ; Second Hand Exposure: No ; Tobacco Cessation Education Requested by Patient: No Hx Alcohol Use: No Hx Substance Use: No Review of Systems Review of Systems: All systems reviewed & are unremarkable except as noted in HPI & below Physical Exam Physical Exam: General: alert and oriented. Head: normal in appearance Ears: tympanic membranes clear bilaterally Eyes: sclera anicteric, no conjunctival injection Nose: nasal mucosa without edema, without erythema, without bogginess Throat: oropharynx clear, no cobblestoning, tonsil exam unremarkable Neck and lymphatics: without lymphadenopathy or thyromegaly. Trachea Midline. No masses appreciated. Cardiovascular: regular rate and rhythm, normal S1 and S2. No murmurs, rubs, gallops appreciated. Lungs: Clear to auscultation bilaterally. No wheezing, rhonchi, crackles. Abdomen: Soft, non-tender, normal bowel sounds. Peripheral vascular and extremities: no cyanosis, clubbing, edema. Skin: Maculopapular rash on the arms, legs, chest, abdomen. She has excoriations overall the body which she attributes to scratching the skin. The skin on the lower legs is erythematous. She has an area on the right foot that appears scaly and erythematous. Results & Data Vital Signs (Past 12 Hours) Vital Signs Temp Pulse Resp BP Pulse Ox 09/06/19 07:25 36.3 C L 107 H 22 176/83 H 93 09/05/19 23:45 36.8 C 96 H 18 128/75 92 09/05/19 22:26 36.7 C 20 131/84 92 Coding Level of Care Code 41224 Inpt Consult Level 4 Diagnoses Dermatitis L30.9 Cellulitis L03.115 Laterality: right Site of cellulitis: extremity Site of cellulitis of extremity: lower extremity Eosinophilia D72.1 (1) Cellulitis Laterality: right Site of cellulitis: extremity Site of cellulitis of extremity: lower extremity Qualified Code(s): L03.115 - Cellulitis of right lower limb
[2019-09-06 09:24] LABS: BUN Creatinine Ratio 18.2 (10-20); Creatinine Clr Calc Pharmacy 227.5 ml/min; Est GFR (African American) 140.7; Est GFR (Non-African American) 121.4; Magnesium 1.9 mg/dl (1.8-2.4)
[2019-09-06] MEDS ORDERED: METOPROLOL TARTRATE 25 MG TAB PO ONE (10:00)
[2019-09-06] MEDS: CETIRIZINE HCL 10 MG TABLET PO SCH (10:29)
[2019-09-06] MEDS: ENOXAPARIN INJ 40 MG/0.4 ML SYR SQ SCH ×2 (10:29→20:52)
[2019-09-06 10:32] LABS: Estimated Average Glucose 131 mg/dl; Hemoglobin A1C 6.2 % (4.5-5.6)
--- NOTE | 2019-09-06 16:42 | Hospitalist Progress Note ---
Date of Service September 06, 2019 Assessment & Plan (1) Cellulitis: * Patient right lower extremity cellulitis. US Doppler without evidence of DVT * Continue Dapto -- patient with hx MRSA * May need additional coverage with cephalosporin given spread. Vs allergic response * Allergy/immunology consult-- appreciate input * Infectious Disease consult -- appreciate input given patient with multiple abx allergies and failure to respond to outpatient treatment with clinda/cipro * ua with coag neg staph, corynbacter sp not urealyticum. no sensitivities. likely contaminated. epi>>wbc. no bacteria (2) Dermatitis: * Patient with full body dermatitis, consider drug eruption versus possible full-body contact dermatitis. Patient is encouraged not to scratch as this may make her rash worse. * Given eosinophilia, 0.75, initiated cetirizine 10mg daily * Benadryl prn * Consulted allergy/immunology * Continue prednisone 40mg daily -- decrease by 10mg daily Q3 days * Will need outpatient follow up for allergy testing once rash resolved ideally (3) Breast abscess: * US L breast ordered (4) Eosinophilia: * See above * Allergy/Immunology consult -- appreciate input -- see above * Monitor CBC with diff in AM (5) Prediabetes: * Given patient family history, poor wound healing, BMI, and increased thirst, A1c level checked. * A1c 6.2 -- will drug abuse counselor patient on the meaning of this in AM (6) Menorrhagia: * Patient with reported heavy periods with clots for 3 weeks followed by one week off. Regularly occurring without missed periods outside of * Likely excess androgen production/PCOS-- additional benefit from metformin for both PCOS/DM possible * Patient with concerns for uterine ca --> US ordered for September 19 as outpatient * CT A/p ordered (7) Obesity: * BMI 78.3 * Per patient, she had previously been working towards surgical intervention via gastric bypass, but has had recent weight gain and has not yet been seen in follow up * Educated on diet/exercise -- patient should really be initiated on metformin --> will also help with likely excess androgen production and lipid deposition/abscess under breast-- will discuss in AM . Follow up with PCP recommended (8) Anxiety: * Chronic. Continue home buspirone 7.5mg BID (9) DVT prophylaxis: * Given patient BMI, discussed with pharmacist --> increased lovenox to BID dosing Admission and Anticipated Discharge Date Admission Date: September 05, 2019 Supervising Physician Co-Signing Physician Notes PA Supervision Note: I did not personally see or examine the patient today, but I verified all garrett points of SHANA Andrade's assessment and plan with the following exceptions/additions: None Subjective Patient evaluated this afternoon. Patient states itchiness has improved but she states she has been trying to stay preoccupied on her phone to keep her mind off of it. Patient states redness is now also present on LLE. She states it started on her left foot and has since spread to the rest of her leg and now to the left. She states she lives in [facility] and she was supposed to have nerve testing and arterial studies of her left leg but when she went, they sent her here. She had previously been on a course of cipro/clinda and the rash has spread. She notes weeping of areas of both legs and swelling of her feet and toes as well as hands. Spread to abdomen and upper arms but not to the hands. She states she has been on lasix since June for swelling and she has not had any previous rashes similar to this.She states she typically has very swollen legs and she utilizes a compression machine twice daily for an hour. She does note a history of mrsa following a bite by a brown recluse to her abdomen they required surgical debridement. Patient also with concerns regarding two fluid collections beneath her left breast. She states the one most medial had previously drained white pus, no blood. The second she pressed on during our conversation and expelled some white chalky material. Discussed that we will obtain a culture. Patient also with concerns regarding uterine ca, as she has a significant history for heavy bleeding with clots . Denies family history of such. She states she has an appointment on September 19 to have a transvaginal ultrasound, and showed confirmation of appointment and testing on print out patient had with her belongings. No previous history of DVT or PE. Denies family history of coagulopathies, although she states she is adopted. She then stated when asked about a possible history of diabetes, she states that her oldest son is a diabetic and strong family history in the rest of her family as well as a daughter with type I DM. She denies ever being tested for diabetes but states she has had increased thirst and cold intolerance as well as urination. She denies ever having her thyroid checked, but endorses she typically has diarrhea instead of constipation. She also asked at the end of our conversation about the possibility of this being caused be potentially swallowing a tongue ring back in june but she is not sure if she swallowed it or not. Per nursing, patient stated that she did not live alone, but when asked about her son, she states that he is away for misbehaving for a little while and does not live with him at this time. Nursing also notes patient states she has a history of autism diagnosis. She denies recent fevers, chills, chest pain, shortness of breath, abdominal pain, nausea at this time. Review of Systems Review of Systems: All systems reviewed & are unremarkable except as noted in HPI & below Physical Exam Constitutional: well developed, well nourished and + morbidly obese Eyes: + anicteric sclerae and PERRL ENMT: external ear and nose normal, oropharynx normal Neck: trachea midline, no thyromegaly Respiratory: normal respiratory effort; no respiratory distress and no labored breathing Auscultation: + diminished lung sounds; no crackles and no wheezes Cardiovascular: Rate/Rhythm: regular rate and regular rhythm Heart Sounds: no gallop and no murmur Vessels: no JVD Extremities: + edema (3+ nonp itting bilateral LE); no calf tenderness Gastrointestinal (Abdomen): Inspection/Auscultation: normal bowel sounds and + significant pannus Percussion/Palpation: + abdomen tender (minimally diffusely) and abdomen soft; no guarding and abdomen not rigid Musculoskeletal: no cyanosis or clubbing, extremities motor strength 5/5 Skin: Maculopapular rash on the arms, legs, chest, abdomen, sparing back. Diffuse exoriations. RLE with erythema to knee. erythma to distal aspect of LLE. Significant tightness to the skin, but improved per patients account. multiple areas of dry scaly skin Neurologic: moves all extremities and awake; not confused Psychiatric: Orientation: alert and oriented x 3 Lymphatic: no cervical or axillary lymphadenopathy Results & Data ([facility]) Vital Signs (Past 12 Hours) Vital Signs Temp Pulse Resp BP Pulse Ox 09/06/19 15:22 36.9 C 97 H 16 149/98 H 91 09/06/19 10:30 161/99 H 09/06/19 07:25 36.3 C L 107 H 22 176/83 H 93 Laboratory Results 09/06/19 09/06/19 09/06/19 Range/Units 08:40 08:40 08:40 WBC (4.8-10.8) K/uL RBC (4.2-5.4) M/uL Hgb (12.0-16.0) g/dL Hct (37-47) % MCV (80-100) fL MCH (25-34) pg MCHC (32-36) g/dL RDW Std Deviation (36.4-46.3) fL RDW Coeff of Luis (11.5-14.5) % Plt Count (130-400) K/uL MPV (7.4-10.4) fL Immature Gran % (Auto) % Neut % (Auto) % Lymph % (Auto) % [place] % (Auto) % Eos % (Auto) % Baso % (Auto) % Immature Gran # (Auto) (0.00-0.02) K/uL Neut # (Auto) (1.4-6.5) K/uL Lymph # (Auto) (1.2-3.4) K/uL [place] # (Auto) (0.11-0.59) K/uL Eos # (Auto) (0-0.5) K/uL Baso # (Auto) (0-0.2) K/uL Sodium 137 (136-145) mmol/L Potassium 4.0 (3.5-5.1) mmol/L Chloride 103 (98-107) mmol/L Carbon Dioxide 28 (21-32) mmol/L Anion Gap 6.0 (3-11) BUN 10 (7-18) mg/dl Creatinine 0.54 L (0.6-1.2) mg/dl Est Cr Clr Drug Dosing 227.5 ml/min Est GFR ( Amer) 140.7 Est GFR (Non-Af Amer) 121.4 BUN/Creatinine Ratio 18.2 (10-20) Glucose 124 H (70-99) mg/dl Estimat Average Glucose 131 mg/dl Hemoglobin A1c 6.2 H (4.5-5.6) % Lactate 1.5 (0.4-2.0) mmol/L Calcium 9.0 (8.5-10.1) mg/dl Magnesium 1.9 (1.8-2.4) mg/dl 09/06/19 Range/Units 08:40 WBC 14.99 H (4.8-10.8) K/uL RBC 5.40 (4.2-5.4) M/uL Hgb 14.8 (12.0-16.0) g/dL Hct 45.0 (37-47) % MCV 83.3 (80-100) fL MCH 27.4 (25-34) pg MCHC 32.9 (32-36) g/dL RDW Std Deviation 47.8 H (36.4-46.3) fL RDW Coeff of Luis 15.9 H (11.5-14.5) % Plt Count 390 (130-400) K/uL MPV 9.4 (7.4-10.4) fL Immature Gran % (Auto) 0.4 % Neut % (Auto) 75.0 % Lymph % (Auto) 15.3 % [place] % (Auto) 4.1 % Eos % (Auto) 5.0 % Baso % (Auto) 0.2 % Immature Gran # (Auto) 0.06 H (0.00-0.02) K/uL Neut # (Auto) 11.24 H (1.4-6.5) K/uL Lymph # (Auto) 2.29 (1.2-3.4) K/uL [place] # (Auto) 0.62 H (0.11-0.59) K/uL Eos # (Auto) 0.75 H (0-0.5) K/uL Baso # (Auto) 0.03 (0-0.2) K/uL Sodium (136-145) mmol/L Potassium (3.5-5.1) mmol/L Chloride (98-107) mmol/L Carbon Dioxide (21-32) mmol/L Anion Gap (3-11) BUN (7-18) mg/dl Creatinine (0.6-1.2) mg/dl Est Cr Clr Drug Dosing ml/min Est GFR ( Amer) Est GFR (Non-Af Amer) BUN/Creatinine Ratio (10-20) Glucose (70-99) mg/dl Estimat Average Glucose mg/dl Hemoglobin A1c (4.5-5.6) % Lactate (0.4-2.0) mmol/L Calcium (8.5-10.1) mg/dl Magnesium (1.8-2.4) mg/dl Diagnostic Findings US Breast Left IMPRESSION: There are 2 very small fluid collections within the subcutaneous tissues of the left breast as described above. CT Abd/pelvis oral/IV contast IMPRESSION: No acute process. No significant change from the prior study. BILATERAL LOWER EXTREMITY VENOUS DOPPLER IMPRESSION: No DVT within the right or left lower extremity. PG Care Time/CCT Total # of Minutes Spent Total Time Spent with Patient: Total time spent is greater than 50% in coordination of care (as documented) at patient's floor/unit and/or counseling patient: Coding Level of Care Code 34205 Subseq Hosp Care Lvl 3 Diagnoses Cellulitis L03.115 Laterality: right Site of cellulitis: extremity Site of cellulitis of extremity: lower extremity Dermatitis L30.9 Breast abscess N61.1 Eosinophilia D72.1 Prediabetes R73.03 Menorrhagia N92.0 Obesity E66.9 Anxiety F41.9 DVT prophylaxis Z29.9 (1) Cellulitis Laterality: right Site of cellulitis: extremity Site of cellulitis of extremity: lower extremity Qualified Code(s): L03.115 - Cellulitis of right lower limb
[2019-09-06] MEDS ORDERED: IOVERSOL 100ml IV PRN (16:46)
[2019-09-06] MEDS ORDERED: OPTIRAY 320 125ml IV PRN (16:49)
--- NOTE | 2019-09-06 17:03 | CT Scan Report ---
CT abd pelvis oral and IV con CT DOSE: 2076.66 mGy.cm HISTORY: Pain. Nausea. menorrhagia, abdominal fullness TECHNIQUE: Multiaxial CT images of the abdomen and pelvis were performed following the use of intrave nous and oral contrast. A dose lowering technique was utilized adhering to the principles of ALARA. COMPARISON STUDY: 04/19/2015 FINDINGS: Lung bases are clear. Liver is uniform. Prior cholecystectomy. Mild gastric distention. Spleen and pancreas are unremarkable. Kidneys are negative for nephrocalcinosis. There is no evidence for hydronephrosis. Bowel pattern overall is nonobstructive. There are several small reactive nodes in the inguinal regio ns unchanged from the prior study. IMPRESSION: No acute process. No significant change from the prior study. ACT 112: Negative or not required by law. The above report was generated using voice recognition software. It may contain grammatical, syntax or spelling errors. Electronically signed by: Shalom Glaser M.D. 09/06/2019 5:02 PM
--- NOTE | 2019-09-06 17:06 | Ultrasound Report ---
US breast LT limited CLINICAL HISTORY: Left breast abscess COMPARISON STUDY: No previous studies for comparison. FINDINGS: Within the left breast at the 5:00 position, there is a mildly complex fluid collection wit h surrounding hypervascularity measuring 22 x 10 x 3 mm. Within the left breast at the 6:00 position, there is a subcutaneous sliver of fluid measuring 22 x 10 x 1mm. IMPRESSION: There are 2 very small fluid collections within the subcutaneous tissues of the left gerry ast as described above. ACT 112: Negative or not required by law. Electronically signed by: Jaime Brown M.D. 09/06/2019 5:05 PM
[2019-09-06] MEDS: DAPTOmycin 600 MG in SYRINGE 0 ML IV SCH (18:00)
[2019-09-06] MEDS ORDERED: predniSONE 20 MG TAB PO SCH (21:00)
[2019-09-06] MEDS: ACETAMINOPHEN 325 MG TAB PO PRN (21:05)
[2019-09-06] MEDS ORDERED: hydroCHLOROthiazide 25 MG TAB PO STA (21:50)
[2019-09-07 08:51] LABS: Basophils # (auto) 0.03 K/uL (0-0.2); Basophils % (auto) 0.3 %; Eosinophils # (auto) 1.26 K/uL (0-0.5); Eosinophils % (auto) 10.8 %; Hematocrit (blood only) 46.9 % (37-47); Hemoglobin 15.2 g/dL (12.0-16.0); Immature Granulocytes # (auto) 0.05 K/uL (0.00-0.02); Immature Granulocytes % (auto) 0.4 %; Lymphocytes # (auto) 3.41 K/uL (1.2-3.4); Lymphocytes % (auto) 29.3 %; Mean Corpuscular Hemoglobin 27.2 pg (25-34); Mean Corpuscular Hgb Conc 32.4 g/dL (32-36); Mean Corpuscular Volume 83.9 fL (80-100); Mean Platelet Volume 10.1 fL (7.4-10.4); Monocytes # (auto) 0.66 K/uL (0.11-0.59); Monocytes % (auto) 5.7 %; Neutrophils # (auto) 6.21 K/uL (1.4-6.5); Neutrophils % (auto) 53.5 %; Platelet Count 356 K/uL (130-400); RDW Coefficient of Variation 16.3 % (11.5-14.5); RDW Standard Deviation 49.3 fL (36.4-46.3); Red Blood Count 5.59 M/uL (4.2-5.4); White Blood Count 11.62 K/uL (4.8-10.8)
--- NOTE | 2019-09-07 09:09 | Infectious Disease Consult ---
Date of Consultation September 07, 2019 Assessment & Plan (1) Dermatitis: can continue treatment for rash, may be related to previous abx, she has chronic skin changes but I do not see any evidence for cellulitis on my exam, no redness, warmth noted, may have improved since admission, would hold abx or consider short course 3-5 days due to ongoing rash. afebrile, clinically stable, suspect wbc elevated due to steroids and not infection, urine culture likely represent skin ananda, asymptomatic with negative bacteria on UA and > 30 ep cells. History of Present Illness Attending Physician: Alyse Mckeon MD pt admitted with rle cellulitis, was on 8 days cipro and clinda barge captain from pcp and developed diffuse body rash. no fevers at home, afebrile since admission, wbc normal in ER, give steroids for rash, wbc increaed to 14 today. she is also receiving creams, benadryl with little relief. she has allergy eval pending. she admits to increased swelling in legs and some discomfort due to that, no redness in legs, no open wounds. wound culture of breast done, pening, blood cultures negative. UA negative, contamaninated with >30 ep cells no cp, sob, cough, no abd pain, no n/v/d, no gu symptoms. only complaint is of itching from rash. on dapto for cellulitis. Allergies Allergy/AdvReac Type Severity Reaction Status Date / Time cefaclor Allergy Unknown Verified 09/05/19 14:39 Penicillins Allergy Unknown Verified 09/05/19 14:39 amoxicillin Allergy Hives Unverified 09/05/19 14:39 cefdinir [From Omnicef] Allergy Hives Unverified 09/05/19 14:39 ciprofloxacin Allergy Hives Unverified 09/05/19 14:39 clindamycin Allergy Hives Unverified 09/05/19 14:39 Home Medications Home Medications Medication Instructions Recorded Confirmed Type buspirone 7.5 mg PO BID 09/05/19 09/05/19 History furosemide 80 mg PO QAM 09/05/19 09/05/19 History potassium chloride 10 meq PO QAM 09/05/19 09/05/19 History Patient History Medical History Anxiety delivery delivered (Resolved) Fracture of ulnar styloid (Acute) Surgical History S/P cholecystectomy (Resolved) Family History Other No significant family history Social History Preferred Language: Serbian Communication Ability: Effective Budget Record Clerk Required: No Beliefs That Will Affect Care: None Current Living Situation: Alone Feels Safe at Home: Yes Smoking Status: Current every day smoker Tobacco Type: cigarettes ; Second Hand Exposure: No ; Hx Alcohol Use: No Hx Substance Use: No Review of Systems Review of Systems: All systems reviewed & are unremarkable except as noted in HPI & below Physical Exam Constitutional: WD/WN, vitals as above well developed and + morbidly obese Eyes: PERRL, conjunctivae normal, anicteric sclerae ENMT: external ear and nose normal, oropharynx normal Neck: normal visual inspection Respiratory: normal respiratory effort, lungs clear to auscultation Cardiovascular: RRR, no murmur, no edema Gastrointestinal (Abdomen): normal bowel sounds, soft, nontender, no hepatosplenomegaly Musculoskeletal: no cyanosis or clubbing, extremities motor strength 5/5 Skin: + rash (diffuse) and + dry skin; no ulcers and no erythema Psychiatric: A+Ox3, euthymic affect Results & Data ([facility]) Vital Signs (Past 12 Hours) Vital Signs Temp Pulse Pulse Resp BP Pulse Ox 09/07/19 07:08 36.5 C 96 H 22 162/92 H 94 09/06/19 22:58 36.9 C 89 16 153/84 H 93 Laboratory Results Microbiology 09/06/19 21:00 Breast,Left Gram Stain - Final 09/05/19 12:56 Blood Aerobic Blood Culture - Preliminary No growth in Aerobic bottle after 24 hours. 09/05/19 12:56 Blood Anaerobic Blood Culture - Preliminary No growth in Anaerobic bottle after 24 hours. 09/05/19 13:27 Blood Aerobic Blood Culture - Preliminary No growth in Aerobic bottle after 24 hours. 09/05/19 13:27 Blood Anaerobic Blood Culture - Preliminary No growth in Anaerobic bottle after 24 hours. 09/05/19 13:00 Urine,Clean Catch Urine Culture - Preliminary Coag negative Staphylococcus Corynbact.sp not urealyticum PG Care Time/CCT Total # of Minutes Spent Total Time Spent with Patient: Total time spent is greater than 50% in coordination of care (as documented) at patient's floor/unit and/or counseling patient: Coding Level of Care Code 74691 Inpt Consult Level 4 Diagnoses Dermatitis L30.9
[2019-09-07 09:18] LABS: Albumin Level 3.1 gm/dl (3.4-5.0); BUN Creatinine Ratio 19.6 (10-20); Calcium 8.9 mg/dl (8.5-10.1); Creatinine Clr Calc Pharmacy 227.5 ml/min; Est GFR (African American) 140.7; Est GFR (Non-African American) 121.4; Potassium 3.9 mmol/L (3.5-5.1)
[2019-09-07 09:21] LABS: Albumin Globulin Ratio 0.8 (0.9-2); Bilirubin,Total 0.4 mg/dl (0.2-1); Globulin 3.9 gm/dl (2.5-4.0)
[2019-09-07] MEDS: FUROSEMIDE 80 MG TAB PO SCH (09:43)
[2019-09-07] MEDS: ENOXAPARIN INJ 40 MG/0.4 ML SYR SQ SCH ×2 (09:43→20:41)
[2019-09-07] MEDS: POTASSIUM CHLORIDE 10 MEQ TABCR PO SCH (09:43)
[2019-09-07] MEDS: BUSPIRONE HCL 7.5 MG TAB PO SCH ×2 (09:43→20:40)
--- NOTE | 2019-09-07 09:45 | Surgery Consultation ---
Date of Consultation September 07, 2019 Assessment & Plan (1) Breast abscess: This is a 34y F with a PMH of morbid obesity & menorrhagia currently undergoing work up for uterine ca, who presents to the [facility] ED on 09/05 with lower extremity swelling and rash, with additional complaints of L breast abscesses. Per her history these abscesses have been present for >13 years, she has sought medical attention once prior and underwent I&D. They apparently never fully went away and have been draining intermittently. Now drainage has changed and areas are becoming more sore. US shows two very small abscesses. We will currently recommend ongoing abx- culture's sent, can adjust based on sensitivit ies and will ask for ultrasound guided aspiration for these two areas of concern. History of Present Illness Attending Physician: Alyse Mckeon MD History of Present Illness This is a 34y F with a PMH of morbid obesity & menorrhagia currently undergoing work up for uterine ca, who presents to the [facility] ED on 09/05 with lower extremity swelling and full body rash. The patient is currently being followed by allergy and immunology & ID for workup of her rash, which she tells me started about 2 months ago. Surgery has been consulted because they patient expressed she also has two breast abscesses that she says have been there for "years". She sought management for them about 13 years ago and had them I&D'd and says they never went away since that point. They have been draining intermittently over the years clear fluid. Since admission she says that the drainage has changed to a greenish fluid and have been becoming more sore which is a change for her. She denies fevers/chills. A breast US was obtained that revealed 2 very small fluid collections within the subcutaneous tissues of the left breast as described above. Surgery was consulted for evaluation. Allergies Allergy/AdvReac Type Severity Reaction Status Date / Time cefaclor Allergy Unknown Verified 09/05/19 14:39 Penicillins Allergy Unknown Verified 09/05/19 14:39 amoxicillin Allergy Hives Unverified 09/05/19 14:39 cefdinir [From Omnicef] Allergy Hives Unverified 09/05/19 14:39 ciprofloxacin Allergy Hives Unverified 09/05/19 14:39 clindamycin Allergy Hives Unverified 09/05/19 14:39 Home Medications Home Medications Medication Instructions Recorded Confirmed Type buspirone 7.5 mg PO BID 09/05/19 09/05/19 History furosemide 80 mg PO QAM 09/05/19 09/05/19 History potassium chloride 10 meq PO QAM 09/05/19 09/05/19 History Patient History Medical History Anxiety delivery delivered (Resolved) Fracture of ulnar styloid (Acute) Surgical History S/P cholecystectomy (Resolved) Family History Other No significant family history Social History Preferred Language: Setswana Communication Ability: Effective [employer] School Learning Support Teacher Required: No Beliefs That Will Affect Care: None Current Living Situation: Alone Other Information That Helps Us Care for You: No Feels Safe at Home: Yes Safety Concerns: Feels Safe At This Time Smoking Status: Current every day smoker Tobacco Type: cigarettes ; Do You Dip or Chew Tobacco: No ; Second Hand Exposure: No ; Tobacco Cessation Education Requested by Patient: No Hx Alcohol Use: No Hx Substance Use: No Review of Systems Constitutional: no fever and no chills Integumentary: + rash (started out in the lower extremities then progressed upwards, itchy, not painful), + erythema, + breast lump (2 areas on L breast, erythematous & draining clear and greenish fluid) and + breast pain (mild soreness of two breast lesions) lower extremity swelling Physical Exam Physical Exam: awake/alert Constitutional: + morbidly obese itching rash Respiratory: normal respiratory effort Chest (Breasts): Additional Comments: two erythematous areas of L breast with some induration, slight ttp, more medial lesion expressing purulent fluid and lateral lesion with serous drainage. there is a 3rd smaller lesion more laterally. Skin: lower extremity edema, dry scaly skin, + full body rash extending up to chest Results & Data Vital Signs (Past 12 Hours) Vital Signs Temp Pulse Pulse Resp BP Pulse Ox 09/07/19 07:08 36.5 C 96 H 22 162/92 H 94 09/06/19 22:58 36.9 C 89 16 153/84 H 93 US breast LT limited CLINICAL HISTORY: Left breast abscess COMPARISON STUDY: No previous studies for comparison. FINDINGS: Within the left breast at the 5:00 position, there is a mildly complex fluid collection with surrounding hypervascularity measuring 22 x 10 x 3 mm. Within the left breast at the 6:00 position, there is a subcutaneous sliver of fluid measuring 22 x 10 x 1mm. IMPRESSION: There are 2 very small fluid collections within the subcutaneous tissues of the left breast as described above. ACT 112: Negative or not required by law. Electronically signed by: Jaime Brown M.D. 09/06/2019 5:05 PM PG Care Time/CCT Total # of Minutes Spent Total Time Spent with Patient: Total time spent is greater than 50% in coordination of care (as documented) at patient's floor/unit and/or counseling patient: Coding Level of Care Code 48002 Inpt Consult Level 2 Diagnoses Breast abscess N61.1
[2019-09-07] MEDS: CETIRIZINE HCL 10 MG TABLET PO SCH (09:46)
[2019-09-07] MEDS: predniSONE 20 MG TAB PO SCH (09:46)
[2019-09-07] MEDS: NICOTINE 7 MG/24 HR TDSY TD SCH (11:03)
[2019-09-07] MEDS ORDERED: hydroCHLOROthiazide 25 MG TAB PO STA (11:48)
[2019-09-07] MEDS ORDERED: FAMOTIDINE 20 MG in SYRINGE 3 ML IV ONE (12:00)
--- NOTE | 2019-09-07 12:43 | Hospitalist Progress Note ---
Date of Service September 07, 2019 Assessment & Plan (1) Dermatitis: * Patient with full body dermatitis, consider drug eruption versus possible full-body contact dermatitis. Patient is encouraged not to scratch as this may make her rash worse. * Given eosinophilia, 0.75, initiated cetirizine 10mg daily--> resolution on AM CBC * Benadryl prn, Added pepcid x 1 now. Will add ranitidine in AM * Consulted allergy/immunology * Continue prednisone 40mg daily -- decrease by 10mg daily Q3 days -- decrease to 30mg on * Will need outpatient follow up for allergy testing once rash resolved ideally (2) Cellulitis: * Patient right lower extremity cellulitis. US Doppler without evidence of DVT * Continue Dapto -- patient with hx MRSA. ID will rec for short course vs d/c. Will await c/s of breast abscess aspiration today given gram stain with many p ras, many gram + cocci, many gram negative cocci, rare gram negative rods * May need additional coverage with cephalosporin given spread. Vs allergic response. Patient nontender to palpation. * More likely allergic reaction- will d/c lasix. will trial ethacrynic acid. Will need [place] check with insurance -- will ask DEL link in AM * Allergy/immunology consult-- appreciate input * Infectious Disease consult -- appreciate input given patient with multiple abx allergies and failure to respond to outpatient treatment with clinda/cipro. * ua with coag neg staph, corynbacter sp not urealyticum. sensitivities on coag neg staph to follow. likely contaminated. epi>>wbc. no bacteria (3) Lymphedema: * CT abd/pel with contrast without any report of vascular anomalies as cause of LE edema * Would benefit from outpatient f/u with lymphedema clinic. Patient utilizes compression device 1hr twice daily at home (4) Breast abscess: * US L breast ordered with complex cyst under left breast, hypervascularity * General surgery consult -- appreciate input * US guided biopsy today -- follow c/s (5) Eosinophilia: * See above * Allergy/Immunology consult -- appreciate input -- see above * Monitor CBC with diff in AM (6) Prediabetes: * Given patient family history, poor wound healing, BMI, and increased thirst. * A1c 6.2 -- educattion * Would initiate metformin once rash resolves (7) Menorrhagia: * Patient with reported heavy periods with clots for 3 weeks followed by one week off. Regularly occurring without missed periods outside of * Likely excess androgen production/PCOS-- additional benefit from metformin for both PCOS/DM possible * Patient with concerns for uterine ca --> US ordered for September 19 as outpatient * CT A/p without abnormality * Follow up outpatient with US as above * also may improve with initiation of metformin (8) Obesity: * BMI 78.3 * Per patient, she had previously been working towards surgical intervention via gastric bypass, but has had recent weight gain and has not yet been seen in follow up secondary to nicotine use * Educated on diet/exercise -- start metformin as outpatient * Tower Control Operator consult * Will need outpatient follow up (9) Anxiety: * Chronic. Continue home buspirone 7.5mg BID (10) Tobacco dependency: * Educated on risks. Patient smokes approx 6 cigarettes/day currently but had previously been up to 4 packs/day. * Patient also admits to vaping, but with 0% nicotine, as she states she has been postponed on bypass due to needing to be free of nicotine prior to surgery and will be tested * Patient req nicotine patch -- ordered (11) DVT prophylaxis: * Given patient BMI, discussed with pharmacist --> increased lovenox to BID dosing Admission and Anticipated Discharge Date Admission Date: September 07, 2019 Supervising Physician Co-Signing Physician Notes PA Supervision Note: I did not personally see or examine the patient today, but I verified all garrett points of SHANA Andrade's assessment and plan with the following exceptions/additions: Changes made to A/P as above Subjective Patient with increased itchiness. States she would be agreeable to try some Pepcid. Would be interested in trying calamine lotion but she states with her autism she cannot touch it and will need it applied. Concerns regarding lymphedema vs fluid retention, given that she uses the compression device twice daily for lymphedema. She states she recently increased the setting to a higher pressure on her one and also condones that she does not follow up regularly with her family doctor. She states she has be told to increase and then decrease her Lasix dose by doubling it and then being told by another provider to half the dose. She has only been on the 80mg dose for the past week and states it does not make her urinate very much. Discussed discontinuing Lasix and trailing ethac rynic acid. She states concerns regarding payment for prescription with her insurance. Discussed that it may not have been a cellulitis, but more of an allergic reaction and therefore the decision to discontinue the Lasix. Patient demonstrated understanding. Discussed continuing steroid taper and following up with multiple coil winder. Discussed pre-DM and starting metformin once dermatitis resolves as to not increase risk of additional reaction at this time. Patient may benefit from outpatient referral for lymphedema clinic. Queries on anything close to home. Patient agreeable for US guided aspiration today. Still with multiple areas of healed abscess and healed what she states have been spider bites. Multiple infections in the past with MRSA per her account. She states that they have all been very similar to the formation under her breast. No other draining wounds at this time. Denies a history of sleep apnea but states she does snore but only when she is very tired. She denies daytime sleepiness, and states she has a history of ADHD like her oldest son but she has not been on any medication in quite a while due to lack of follow up. She does state her son also has sleep apnea. When discussion her gastric bypass pursuits, she confirms she currently has been using approximately 6 cigarettes per day but had been up to four packs per day at one point, until six months ago when she quit but then subsequently restarted when her son got into trouble with the law and was put into an institution until this summer When asked about her diet, she states she hardly eats, and has been told by dieticians in the past to eat more frequent smaller meals.However, on exiting the room she called "I'm being good while I'm here, don't worry, but I'm not going to lie I can't wait to get some Henriquez when I get out of here." Concerns with getting a ride home at discharge and having the hospital provide transportation back to [facility]. Her tour driver she does not believe is available on the weekends. She provided a number to be given to case management to coordinate. Review of Systems Review of Systems: All systems reviewed & are unremarkable except as noted in HPI & below Physical Exam Constitutional: well developed, well nourished and + morbidly obese Eyes: + anicteric sclerae and PERRL Neck: trachea midline, no thyromegaly Respiratory: normal respiratory effort; no respiratory distress and no labored breathing Auscultation: + diminished lung sounds and + wheezes (expiratory wheezes); no crackles Cardiovascular: Rate/Rhythm: regular rate and regular rhythm Heart Sounds: no gallop and no murmur Vessels: no JVD Extremities: + edema (3+ nonpitting bilateral LE); no calf tenderness Gastrointestinal (Abdomen): Inspection/Auscultation: normal bowel sounds and + significant pannus Percussion/Palpation: + abdomen tender (minimally diffusely) and abdomen soft; no guarding and abdomen not rigid Musculoskeletal: no cyanosis or clubbing, extremities motor strength 5/5 Skin: diffuse rash to RLE, LLE minimally erythematous diffuse excoriations B/L LE multiple scars to abdomen from healed abscesses lymphedema B/L LE Neurologic: moves all extremities and awake; not confused Psychiatric: Orientation: alert and oriented x 3 Lymphatic: no cervical or axillary lymphadenopathy Results & Data ([facility]) Vital Signs (Past 12 Hours) Vital Signs Temp Pulse Resp BP Pulse Ox 09/07/19 07:08 36.5 C 96 H 22 162/92 H 94 Laboratory Results 09/07/19 09/07/19 09/07/19 Range/Units 08:17 08:17 08:17 WBC 11.62 H (4.8-10.8) K/uL RBC 5.59 H (4.2-5.4) M/uL Hgb 15.2 (12.0-16.0) g/dL Hct 46.9 (37-47) % MCV 83.9 (80-100) fL MCH 27.2 (25-34) pg MCHC 32.4 (32-36) g/dL RDW Std Deviation 49.3 H (36.4-46.3) fL RDW Coeff of Luis 16.3 H (11.5-14.5) % Plt Count 356 (130-400) K/uL MPV 10.1 (7.4-10.4) fL Immature Gran % (Auto) 0.4 % Neut % (Auto) 53.5 % Lymph % (Auto) 29.3 % Grimes % (Auto) 5.7 % Eos % (Auto) 10.8 % Baso % (Auto) 0.3 % Immature Gran # (Auto) 0.05 H (0.00-0.02) K/uL Neut # (Auto) 6.21 (1.4-6.5) K/uL Lymph # (Auto) 3.41 H (1.2-3.4) K/uL Grimes # (Auto) 0.66 H (0.11-0.59) K/uL Eos # (Auto) 1.26 H (0-0.5) K/uL Baso # (Auto) 0.03 (0-0.2) K/uL Sodium 137 (136-145) mmol/L Potassium 3.9 (3.5-5.1) mmol/L Chloride 104 (98-107) mmol/L Carbon Dioxide 26 (21-32) mmol/L Anion Gap 7.0 (3-11) BUN 11 (7-18) mg/dl Creatinine 0.54 L (0.6-1.2) mg/dl Est Cr Clr Drug Dosing 227.5 ml/min Est GFR ( Amer) 140.7 Est GFR (Non-Af Amer) 121.4 BUN/Creatinine Ratio 19.6 (10-20) Glucose 93 (70-99) mg/dl Calcium 8.9 (8.5-10.1) mg/dl Total Bilirubin 0.4 (0.2-1) mg/dl AST 21 (15-37) U/L ALT 27 (12-78) U/L Alkaline Phosphatase 85 (45-117) U/L Total Creatine Kinase 42 (26-192) U/L Total Protein 7.0 (6.4-8.2) gm/dl Albumin 3.1 L (3.4-5.0) gm/dl Globulin 3.9 (2.5-4.0) gm/dl Albumin/Globulin Ratio 0.8 L (0.9-2) TSH 1.790 (0.300-4.500) uIu/ml PG Care Time/CCT Total # of Minutes Spent Total Time Spent with Patient: Total time spent is greater than 50% in coordination of care (as documented) at patient's floor/unit and/or counseling patient: Coding Level of Care Code 64107 Subseq Hosp Care Lvl 3 Diagnoses Dermatitis L30.9 Cellulitis L03.115 Laterality: right Site of cellulitis: extremity Site of cellulitis of extremity: lower extremity Lymphedema I89.0 Breast abscess N61.1 Eosinophilia D72.1 Prediabetes R73.03 Menorrhagia N92.0 Obesity E66.9 Anxiety F41.9 Tobacco dependency F17.200 DVT prophylaxis Z29.9 (1) Cellulitis Laterality: right Site of cellulitis: extremity Site of cellulitis of extremity: lower extremity Qualified Code(s): L03.115 - Cellulitis of right lower limb
--- NOTE | 2019-09-07 15:01 | Ultrasound Report ---
ULTRASOUND-GUIDED LEFT BREAST ASPIRATION. CLINICAL HISTORY: Left breast fluid collection. COMPARISON STUDY: September 06, 2019 FINDINGS: A timeout was performed. The risks the procedure were explained the patient informed consent was obtained. The breast was prepped in sterile fashion. The skin was anesthetized 1% lidocaine. The tiny abnormal fluid collection at the 5:00 position of the left breast was aspirated. Scan renal fluid was removed. The lesion was nearly completely aspirated. The fluid was sent for Gram stain and culture. The second intraluminal fluid collection described on the ultrasound was too small for aspir ation IMPRESSION: Successful aspiration of a 5:00 dermal lesion, likely representing infected inclusion cy st. The fluid was sent for Gram stain and culture. ACT 112: Negative or not required by law. Electronically signed by: Jaime Brown M.D. 09/07/2019 3:00 PM
[2019-09-07] MEDS: CALAMINE/PRAMOXINE LOTION 180 APPLN/180 ML BTL EXT PRN (17:10)
[2019-09-07] MEDS: DAPTOmycin 600 MG in SYRINGE 0 ML IV SCH (17:50)
[2019-09-07] MEDS ORDERED: ALBUTEROL HFA 8 GM INHALER INH PRN (22:06)
[2019-09-08] MEDS: RANITIDINE HCL SYRUP 150 MG/10 ML UDC PO SCH ×2 (00:44→08:27)
[2019-09-08] MEDS: CALAMINE/PRAMOXINE LOTION 180 APPLN/180 ML BTL EXT PRN (05:43)
[2019-09-08 06:09] LABS: Basophils # (auto) 0.07 K/uL (0-0.2); Basophils % (auto) 0.5 %; Eosinophils % (auto) 7.4 %; Hematocrit (blood only) 43.5 % (37-47); Hemoglobin 14.5 g/dL (12.0-16.0); Immature Granulocytes # (auto) 0.08 K/uL (0.00-0.02); Immature Granulocytes % (auto) 0.6 %; Lymphocytes # (auto) 3.73 K/uL (1.2-3.4); Lymphocytes % (auto) 27.5 %; Mean Corpuscular Hemoglobin 27.7 pg (25-34); Mean Corpuscular Hgb Conc 33.3 g/dL (32-36); Mean Corpuscular Volume 83.2 fL (80-100); Monocytes # (auto) 0.91 K/uL (0.11-0.59); Monocytes % (auto) 6.7 %; Neutrophils # (auto) 7.77 K/uL (1.4-6.5); Neutrophils % (auto) 57.3 %; Platelet Count 378 K/uL (130-400); RDW Coefficient of Variation 15.9 % (11.5-14.5); RDW Standard Deviation 47.9 fL (36.4-46.3); Red Blood Count 5.23 M/uL (4.2-5.4); White Blood Count 13.56 K/uL (4.8-10.8)
[2019-09-08 06:44] LABS: Albumin Level 3.1 gm/dl (3.4-5.0); BUN Creatinine Ratio 24.4 (10-20); Calcium 9.1 mg/dl (8.5-10.1); Creatinine Clr Calc Pharmacy 230.5 ml/min; Est GFR (African American) 140.7; Est GFR (Non-African American) 121.4; Potassium 3.7 mmol/L (3.5-5.1)
[2019-09-08 06:47] LABS: Albumin Globulin Ratio 0.8 (0.9-2); Bilirubin,Total 0.4 mg/dl (0.2-1); Globulin 3.8 gm/dl (2.5-4.0); Total Protein 6.9 gm/dl (6.4-8.2)
[2019-09-08] MEDS: CETIRIZINE HCL 10 MG TABLET PO SCH (08:24)
[2019-09-08] MEDS: POTASSIUM CHLORIDE 10 MEQ TABCR PO SCH (08:24)
[2019-09-08] MEDS: BUSPIRONE HCL 7.5 MG TAB PO SCH ×2 (08:24→21:23)
[2019-09-08] MEDS: predniSONE 20 MG TAB PO SCH (08:24)
[2019-09-08] MEDS: NICOTINE 7 MG/24 HR TDSY TD SCH (08:25)
[2019-09-08] MEDS: ENOXAPARIN INJ 40 MG/0.4 ML SYR SQ SCH ×2 (08:27→21:22)
[2019-09-08] MEDS ORDERED: ETHACRYNIC ACID 25 MG TAB PO SCH (09:00)
--- NOTE | 2019-09-08 09:38 | Hospitalist Progress Note ---
Date of Service September 08, 2019 Assessment & Plan (1) Dermatitis: * Patient with full body dermatitis, consider drug eruption versus possible full-body contact dermatitis, eosinophilia. Patient is encouraged not to scratch as this may make her rash worse. * Benadryl prn * Consulted allergy/immunology -- prednisone taper -- initiated at 40mg daily to be decreased by 10mg every three days --> 30mg to be started on * Added ranitidine 150mg BID * Continue cetirizine 10mg daily * Discontinued Lasix. Will avoid HCTZ and other drugs with sulfa moieties given response. Initiated on ethacrynic acid for BP as well as chronic lower extremity swelling * Will need outpatient follow up for allergy testing once rash resolved ideally (2) Cellulitis: * Patient right lower extremity cellulitis. US Doppler without evidence of DVT * Continue Dapto -- patient with hx MRSA. ID will rec for short course vs d/c. Will await c/s of breast abscess aspiration given gram stain with many poly, many gram + cocci, many gram negative cocci, rare gram negative rods * More likely allergic reaction- will d/c lasix. * Initiated ethacrynic acid. Insurance to approve short course until determination on wednesday, but likely to be approved given likely allergic response and cross sensitivity. * Allergy/immunology consult-- appreciate input * Infectious Disease consult -- appreciate input given patient with multiple abx allergies and failure to respond to outpatient treatment with clinda/cipro --> recommendations for doxycycline on discharge (3) UTI (urinary tract infection): * Possible contaminated sample. epi >>WBC * Ua with coag neg staph, corynbacter sp not urealyticum. sensitivities on coag neg staph pansensitive except to bactrim (4) Lymphedema: * CT abd/pel with contrast without any report of vascular anomalies as cause of LE edema. Patient utilizes compression device 1hr twice daily at home. * Home health set up -- to assist with wraps for lymphedema. Lymphedema specialist in [place]. Would benefit from outpatient f/u with lymphedema clinic. (5) Breast abscess: * US L breast ordered with complex cyst under left breast, hypervascularity * General surgery consult -- appreciate input * US guided biopsy on 09/07 --? gram stain with many WBC, rare gram positive bacilli. culture without growth to date (6) Eosinophilia: * See above. 1.12 on admission, up to 1.26 on 09/07 --> down to 1.0 currently * Allergy/Immunology consult -- appreciate input -- see above * Monitor CBC with diff in AM (7) Prediabetes: * Given patient family history, poor wound healing, BMI, and increased thirst. * A1c 6.2 -- education * assistant health educator -- patient requesting rx for meter, as she states her insurance will cover. Will be provided prior to discharge * Rec initiate metformin once rash resolves --> follow up outpatient with PCP (8) Menorrhagia: * Patient with reported heavy periods with clots for 3 weeks followed by one week off. Regularly occurring without missed periods outside of * Likely excess androgen production/PCOS --> additional benefit from metformin for both PCOS/DM possible * Patient with concerns for uterine ca --> US ordered for September 19 as outpatient * CT A/p without abnormality * Follow up outpatient with US as above * also may improve with initiation of metformin (9) Obesity: * BMI 78.3 * Per patient, she had previously been working towards surgical intervention via gastric bypass, but has had recent weight gain and has not yet been seen in follow up secondary to nicotine use * Educated on diet/exercise -- start metformin as outpatient * Staff Auditor consult * Will need outpatient follow up (10) Anxiety: * Chronic. Continue home buspirone 7.5mg BID (11) Tobacco dependency: * Educated on risks. Patient smokes approx 6 cigarettes/day currently but had previously been up to 4 packs/day. * Patient also admits to vaping, but with 0% nicotine, as she states she has been postponed on bypass due to needing to be free of nicotine prior to surgery and will be tested * Patient req nicotine patch -- ordered * Encouraged smoking cessation (12) DVT prophylaxis: * Given patient BMI, discussed with pharmacist --> increased lovenox to BID dosing Dispo: discharge likely tomorrow morning Admission and Anticipated Discharge Date Admission Date: September 07, 2019 Supervising Physician Co-Signing Physician Notes PA Supervision Note: I personally saw and examined the patient. I verified all garrett points and agree with SHANA Andrade with the following exceptions and/or additions: Patient seen and examined. She reports she is feeling better and is excited to be discharged tomorrow morning to see her son at his juvenile residential treatment facility in [place] tomorrow. She continues to scratch at the rash on her legs. Plan otherwise outlined as above Vitals reviewed Morbidly obese, NAD, ambulated from the bathroom to the bed without difficulty Alert awake oriented x3 Regular rate and rhythm, no murmurs gallops rubs Lungs clear to auscultation bilaterally, no wheezes crackles or rhonchi, breathing unlabored Rash on upper extremities with erythematous macular rash with some wheals, lower extremities with dried up scabbed over maculopapular rash and excoriation 34-year-old female here with allergic reaction possibly to Lasix and secondary cellulitis with a few small areas of folliculitis and micro abscesses -Continue daptomycin and will convert to doxycycline on discharge Continue treatment for allergic reaction as above -Starting ethacrynic acid as a alternative to Lasix -Recommended Aaron wraps for compression of her bilateral lower extremities and discontinuing smoking. Also recommended she get out of the car at least 2 or [address] [place] [address] way to stretch her legs and keep them from swelling prevent blood clots Subjective Patient with reported itchiness. Less swelling. Discussed follow up for diabetes and dietary choices. Discussed addition of ranitidine in pill form. She states the liquid tasted like mouth wash. Discussed that swelling of lower extremities likely will be chronic related to lymphedema and that we have arranged for home health with lymphedema specialist in her area to follow up with as an outpatient. Discussed waiting for culture results but that discussion with ID for recommendations to continue with doxycycline due to multiple drug allergies. Discussed moving forward with ethacrynic acid instead of lasix, to get better BP control and for chronic swelling. Patient with concerns regarding cost. Nurse navigator working on obtaining cost currently. Discussed continuing antihistamines and prednisone and patient will need follow up with allergy/immunology. Patient acceptable for discharge but mother unable to supervisor picking crew until tomorrow. Review of Systems Review of Systems: All systems reviewed & are unremarkable except as noted in HPI & below Physical Exam Constitutional: well developed, well nourished and + morbidly obese Eyes: + anicteric sclerae and PERRL ENMT: external ear and nose normal, oropharynx normal Neck: trachea midline, no thyromegaly Respiratory: normal respiratory effort; no respiratory distress and no labored breathing Auscultation: + diminished lung sounds and + wheezes (expiratory wheezes); no crackles Cardiovascular: Rate/Rhythm: regular rate and regular rhythm Heart Sounds: no gallop and no murmur Vessels: no JVD Extremities: + edema (nonpitting bilateral LE); no calf tenderness Gastrointestinal (Abdomen): Inspection/Auscultation: normal bowel sounds and + significant pannus Percussion/Palpation: + abdomen tender (minimally diffusely) and abdomen soft; no guarding and abdomen not rigid Musculoskeletal: no cyanosis or clubbing, extremities motor strength 5/5 Skin: diffuse rash -- primarily to to RLE > LLE. Non tender to palpation. Decreased swelling. diffuse excoriations B/L LE multiple scars to abdomen from healed abscesses lymphedema B/L LE Neurologic: moves all extremities and awake; not confused Psychiatric: Orientation: alert and oriented x 3 Lymphatic: no cervical or axillary lymphadenopathy Results & Data ([facility]) Vital Signs (Past 12 Hours) Vital Signs Temp Pulse Pulse Pulse Resp BP Pulse Ox 09/08/19 08:00 36.4 C L 88 16 143/80 H 92 09/08/19 07:14 36.4 C L 89 20 151/78 H 92 09/07/19 23:16 36.6 C 90 16 158/85 H 94 Laboratory Results 09/08/19 09/08/19 Range/Units 05:25 05:25 WBC 13.56 H (4.8-10.8) K/uL RBC 5.23 (4.2-5.4) M/uL Hgb 14.5 (12.0-16.0) g/dL Hct 43.5 (37-47) % MCV 83.2 (80-100) fL MCH 27.7 (25-34) pg MCHC 33.3 (32-36) g/dL RDW Std Deviation 47.9 H (36.4-46.3) fL RDW Coeff of Luis 15.9 H (11.5-14.5) % Plt Count 378 (130-400) K/uL MPV 10.0 (7.4-10.4) fL Immature Gran % (Auto) 0.6 % Neut % (Auto) 57.3 % Lymph % (Auto) 27.5 % Johnston % (Auto) 6.7 % Eos % (Auto) 7.4 % Baso % (Auto) 0.5 % Immature Gran # (Auto) 0.08 H (0.00-0.02) K/uL Neut # (Auto) 7.77 H (1.4-6.5) K/uL Lymph # (Auto) 3.73 H (1.2-3.4) K/uL Johnston # (Auto) 0.91 H (0.11-0.59) K/uL Eos # (Auto) 1.00 H (0-0.5) K/uL Baso # (Auto) 0.07 (0-0.2) K/uL Sodium 137 (136-145) mmol/L Potassium 3.7 (3.5-5.1) mmol/L Chloride 100 (98-107) mmol/L Carbon Dioxide 30 (21-32) mmol/L Anion Gap 8.0 (3-11) BUN 13 (7-18) mg/dl Creatinine 0.54 L (0.6-1.2) mg/dl Est Cr Clr Drug Dosing 230.5 ml/min Est GFR ( Amer) 140.7 Est GFR (Non-Af Amer) 121.4 BUN/Creatinine Ratio 24.4 H (10-20) Glucose 81 (70-99) mg/dl Calcium 9.1 (8.5-10.1) mg/dl Total Bilirubin 0.4 (0.2-1) mg/dl AST 18 (15-37) U/L ALT 27 (12-78) U/L Alkaline Phosphatase 81 (45-117) U/L Total Protein 6.9 (6.4-8.2) gm/dl Albumin 3.1 L (3.4-5.0) gm/dl Globulin 3.8 (2.5-4.0) gm/dl Albumin/Globulin Ratio 0.8 L (0.9-2) PG Care Time/CCT Total # of Minutes Spent Total Time Spent with Patient: Total time spent is greater than 50% in coordination of care (as documented) at patient's floor/unit and/or counseling patient: Coding Level of Care Code 79441 Subseq Hosp Care Lvl 2 Diagnoses Dermatitis L30.9 Cellulitis L03.115 Laterality: right Site of cellulitis: extremity Site of cellulitis of extremity: lower extremity UTI (urinary tract infection) N39.0 Lymphedema I89.0 Breast abscess N61.1 Eosinophilia D72.1 Prediabetes R73.03 Menorrhagia N92.0 Obesity E66.9 Anxiety F41.9 Tobacco dependency F17.200 DVT prophylaxis Z29.9 (1) Cellulitis Laterality: right Site of cellulitis: extremity Site of cellulitis of extremity: lower extremity Qualified Code(s): L03.115 - Cellulitis of right lower limb
[2019-09-08] MEDS: FAMOTIDINE 20 MG TAB PO SCH ×2 (12:49→21:24)
[2019-09-08] MEDS ORDERED: EUCERIN CR 120 GM JAR EXT PRN (15:48)
[2019-09-08] MEDS: DAPTOmycin 600 MG in SYRINGE 0 ML IV SCH (17:11)
--- NOTE | 2019-09-08 18:45 | Discharge Summary ---
Date of Service September 09, 2019 Admission HPI Per Admitting Provider This is a 34-year-old female with past medical history of super morbid obesity that presents today from her PCP with a chief complaint of cellulitis. Patient is a decent historian is accompanied by her mother. Patient has had a macular rash over her body for the past 2 weeks. This is extremely pruritic and she has been scratching at it constantly. Covers her chest arms abdomen and legs. Over the past week and a half she is noticed worsening erythema in her right lower extremity. This extends from the romo below the knee down to the foot. There is some small open areas that have been draining serous fluid, especially when the leg is dependent. She has had no systemic symptoms such as fevers or chills. Patient had been started on Cipro and clindamycin approximately 8 days ago, for which she has been compliant. However, she feels that this not helped the edema at all. Her physician saw her today and was concerned that she may be septic and recommended that she presented to the emergency room for further evaluation. The time my evaluation, patient is extremely itchy due to the rash. She is afebrile. I do note that she is mildly hypertensive at 150/98. Patient was given a dose of vancomycin in the emergency room. Admission Exam Per Admitting Provider Constitutional: + morbidly obese and cooperative; no acute distress Neck: trachea midline, no thyromegaly Respiratory: normal respiratory effort Auscultation: lungs clear to auscultation bilaterally; no crackles, no rales, no rhonchi and no wheezes Cardiovascular: Rate/Rhythm: regular rate and regular rhythm Heart Sounds: normal S1 and normal S2 Gastrointestinal (Abdomen): Inspection/Auscultation: abdomen normal to inspection Percussion/Palpation: abdomen soft; abdomen nontender, no guarding, abdomen not rigid and no hepatosplenomegaly Musculoskeletal: On the right lower extremity, patient has increasing erythema with minimal induration. Areas of excoriation. Near the heel there are several cysts very small open areas with evidence of recent drainage but appear to be crusted at this time. Skin: + rash (Extensive macular rash on her chest, arms, legs, and abdomen. Evidence of excoriation in all these areas.) Principal Diagnosis Dermatitis, Lymphedema Discharge Exam Constitutional well developed, well nourished and + morbidly obese Eyes + anicteric sclerae and PERRL ENMT external ear and nose normal, oropharynx normal Neck trachea midline, no thyromegaly Respiratory normal respiratory effort; no respiratory distress and no labored breathing Auscultation: + diminished lung sounds and + wheezes (expiratory wheezes); no crackles Cardiovascular Rate/Rhythm: regular rate and regular rhythm Heart Sounds: no gallop and no murmur Vessels: no JVD Extremities: + edema (nonpitting bilateral LE); no calf tenderness Gastrointestinal (Abdomen) Inspection/Auscultation: normal bowel sounds and + significant pannus Percussion/Palpation: abdomen soft; abdomen nontender, no guarding and abdomen not rigid Musculoskeletal no cyanosis or clubbing, extremities motor strength 5/5 Skin Diffuse rash -- primarily to to RLE > LLE but also present to abdomen, upper extremities. macular rash with some wheals present. Non tender to palpation. diffuse excoriations B/L LE multiple scars to abdomen from healed abscesses lymphedema B/L LE Neurologic moves all extremities and awake; not confused Psychiatric Orientation: alert and oriented x 3 Lymphatic no cervical or axillary lymphadenopathy Discharge Data Allergies Allergy/AdvReac Type Severity Reaction Status Date / Time cefaclor Allergy Unknown Verified 09/05/19 14:39 Penicillins Allergy Unknown Verified 09/05/19 14:39 amoxicillin Allergy Hives Unverified 09/05/19 14:39 cefdinir [From Omnicef] Allergy Hives Unverified 09/05/19 14:39 ciprofloxacin Allergy Hives Unverified 09/05/19 14:39 clindamycin Allergy Hives Unverified 09/05/19 14:39 Consultations 09/05/19 15:10 ED Decision to Admit Stat 09/06/19 08:59 Consult Allergy / Immunology Routine 09/06/19 21:50 Consult Infectious Diseases Routine 09/07/19 08:55 Consult General Surgery Routine 09/08/19 08:38 Consult Case Management - Discharge Planning Routine Ordered Studies 09/05/19 12:46 US venous doppler LE BI Stat CXR 09/06/19 16:30 US breast LT limited Urgent 09/06/19 17:00 CT Abd and Pelvis [CT abd pelvis oral and IV con] Routine 09/07/19 14:00 US breast cyst asp LT Routine 09/07/19 14:46 US guide needle placement Routine Hospital Course (1) Dermatitis: * Likely reaction to lasix, given improvement with discontinued use. Eosinophilia * Allergy/immunology consult -- patient initiated and continued on prednisone taper 40mg PO and decrease by 10mg every three days. * Encouraged not to scratch area. Eucerin to affected areas * Initiated and continued on cetirizine 10mg daily and ranitidine 150mg BID * Initiated on ethacrynic acid for BP as well as swelling * Outpatient follow up for allergy testing once rash resolved ideally (2) Cellulitis: * Patient with possible right lower extremity cellulitis on admission. US Doppler without evidence of DVT * Continued Dapto while inpatient * ID consult given multiple abx allergies * Discharged on doxycycline for total course of 10 days - patient with hx MRSA. (3) UTI (urinary tract infection): * Possible contaminated sample. epi >>WBC * Ua with coag neg staph, corynbacter sp not urealyticum. sensitivities on coag neg staph pansensitive except to bactrim. (4) Lymphedema: * CT abd/pel with contrast without any report of vascular anomalies as cause of LE edema. Patient utilizes compression device 1hr twice daily at [facility]. -- continued on d/c. * Home health set up to assist with wraps for lymphedema. Lymphedema specialist in [place] (5) Breast abscess: * US L breast ordered with complex cyst under left breast, hypervascularity * General surgery consult -- appreciate input * US guided biopsy on 09/07 with culture with many gram positive bacilli, no sensitivities to follow * Discharged on dozy as above * BCx no growth to date (6) Eosinophilia: * See above. 1.12 on admission, up to 1.26 on 09/07, trended down. Initiated rantidine and zrytec as above in addition to prednisone * Allergy/Immunology consult -- see above * Monitor CBC with diff in AM (7) Prediabetes: * Given patient family history, poor wound healing, BMI, and increased thirst, A1c was checked. * A1c 6.2 -- education provided * rn diabetes educator -- patient requesting rx for meter, as she states her insurance will cover. Instructed to obtain rx prior to initiation of metformin therapy as outpatient with PCP for reported history of hypoglycemic episodes. (8) Menorrhagia: * Patient with reported heavy periods with clots for 3 weeks followed by one week off. Regularly occurring without missed periods outside of * Likely excess androgen production/PCOS --> additional benefit from metformin for both PCOS/DM possible * Patient had concerns for uterine ca - CT A/p without abnormality * Follow up with transvaginal US ordered for September 19 as outpatient * also may improve with initiation of metformin (9) Obesity: * BMI 79.7 * Per patient, she had previously been working towards surgical intervention via gastric bypass, but had recent weight gain and not yet been seen in follow up secondary to nicotine use * Educated on diet/exercise --rec start metformin as outpatient via PCP * Outpatient follow up (10) Anxiety: * Chronic. Continued home buspirone 7.5mg BID (11) Tobacco dependency: * Educated on risks. Patient smokes approx 6 cigarettes/day currently but had previously been up to 4 packs/day. * Patient admitted to vaping, but with 0% nicotine, stated postponed on bypass due to needing to be free of nicotine prior to surgery and will be tested. * Nicotine patch while inpatient. Encouraged smoking cessation (12) DVT prophylaxis: * Given patient BMI, discussed with pharmacist --> increased lovenox to BID dosing while inpatient Discharged with mother to travel to [place]. Encouraged frequent stops in order to prevent blood clots. Total Time Total Time Spent Total Time Spent (In Minutes): 75 Discharge Plan Discharge Items Patient Disposition: Home - Self-Care Reason For Visit: CELLULITIS Discharge Diagnosis: Medication induced dermatitis (rash) Condition on Discharge: Good Goals: You have been hospitalized for an acute medical problem. During your stay at [facility], we have made an effort to correct the problem that brought you to the hospital while keeping you as comfortable as possible. Medications were used to bring your condition under control and your discharge instructions will include directions for any medications you should take after leaving the hospital. Please make sure you see your Primary Care Provider as part of your follow up plan. Activity: Resume your previous activity Activity Comment: follow up with lymphedema therapy and compression device twice daily Non-emergency contact: Primary Care Provider Call non-emergency contact if: you have any medication questions and your symptoms worsen Follow-up/Referrals: Celi Barragan PT [Other] ([facility] [address] [place] [address] *Please, call to schedule an appointment. Their therapist is certified in lymphedema treatment and they accept your health insurance. ) Caleb Perdomo [Primary Care Provider] - 09/20/19 2:30 pm Diet: Heart Healthy Addtl Attending Provider Instructions: You have had your lasix discontinued. It is likely related to your current rash and for that reason a medication named ethacrynic acid has been prescribed that works in the same way lasix does to help with fluid, but is prescribed to individuals with lasix allergies. You were evaluated by allergy/immunology while inpatient and you have been started on and are instructed to continue a prednisone taper to help with the allergic component. You have been on 40mg for the past three days and have received 30mg this morning. This medication will be decreased by 10mg every three days as follows: -- 30 mg by mouth (3 of the 10mg tablets) Wednesday and Wednesday, then -- 20 mg by mouth (2 of the 10mg tablets) Wednesday, Wednesday and -- 10mg by mouth (1 tablet) Wednesday, Wednesday and Wednesday The total course should be completed by September 16. You should continue daily zyrtec 10mg by mouth and pepcid 20mg by mouth twice daily for itchiness. Prescriptions have been sent, but if not covered by insurance, these are available over the counter. You have been given a tube of eucerin to apply to your legs to help keep them moisturized. It is highly encouraged to avoid scratching at these areas, as this increases your risk of infection. A biopsy was done of the fluid collection beneath your breast. Final cultures are still pending. If final culture results are resistant to current antibiotic, you will be notified. You are being sent home with a prescription for doxycycline, as determined by infectious disease provider given your allergies to multiple antibiotics and history of MRSA. You were treated with IV antibiotics while in the hospital and will complete an additional six days for a total treatment of ten days. The antibiotic covers for MRSA, given your history of MRSA. -- You should continue as doxycycline 100mg by mouth twice daily for the next six days. Lab testing was done to see if you were diabetic, which can complicate wound healing and worsen your vascular system. Your A1c was elevated at 6.2 A primary special educator was up to see you during this admission and discussed monitoring your blood sugar once you start metformin after discussing with your family doctor. You should follow up with your primary care provider for a prescription for a glucometer to check your blood sugars once you start metformin so that you can monitor for low blood sugars. It is encouraged to continue healthy eating habits and exercise to encourage weight loss. It is encouraged to quit smoking so that you can proceed with you plans for bypass surgery. If you are unsuccessful with nicotine patch replacement y=or zero nicotine with your electronic device, you may want to ask your family doctor about a medication like Wellbutrin to help fight the urge to smoke. Regarding your heavy periods, a cat scan was done which did not show any evidence of malignancy. You should follow up with your transvaginal ultrasound on September 19 as previously scheduled, as this is the best test to evaluate for any gynecological issues. Please follow up with your bank vault custodian and primary care provider in the next week. Please report to the nearest emergency room if you develop fevers, worsening redness/swelling, or for any symptoms that are concerning for you. It has been a pleasure being a part of the medical team providing for you during your hospitalization. Take care! Pending Studies at Discharge: Yes Studies:: Fine Needle Aspiration Culture Blood Cultures -- currently no growth to date Stand-Alone Forms: My [facility] [place], Smoking Cessation Medications and DC Order Prescriptions: New ethacrynic acid [Edecrin] 25 mg Tablet 50 mg PO QAM 30 Days Qty: 60 RF: 0 prednisone 10 mg Tablet See Rx Instructions .ROUTE .COMPLEX Qty: 15 RF: 0 cetirizine 10 mg Tablet 10 mg PO QAM 30 Days Qty: 30 RF: 0 famotidine 20 mg Tablet 20 mg PO BID 30 Days Qty: 60 RF: 0 albuterol sulfate [Ventolin HFA] 90 mcg/actuation Hfa Aerosol Inhaler 2 puff inhalation Q4H PRN (Reason: shortness of breath or wheezing) Qty: 6.7 RF: 0 Dermacerin Cream 1 applic EXT Q4H PRN (Reason: dry skin) Qty: 2568 RF: 0 Continued potassium chloride 10 mEq tablet extended release 10 meq PO QAM RF: 0 buspirone 7.5 mg tablet 7.5 mg PO BID RF: 0 Discontinued furosemide 40 mg tablet 80 mg PO QAM RF: 0 Discharge Orders: Discharge Order (Routine); Ordered 09/09/19 Ordered By: Mariela Bush/Other Patient Handouts: Prediabetes, Diabetes Yeast Supervisor Complications, Diabetes Resources, Diabetes Healthy Meals, Understanding Carbohydrates, Diabete s Exercise Benefits, A1C Admission Data Admit Date/Time: 09/05/19 16:22 Attending Provider: Alyse Mckeon Admit Provider: Jeremiah Gates Primary Care Provider: Caleb Perdomo Other Providers: Jeremiah Gates ; Sanjeev Price ; Nito Narayan ; Alexia Husrt Other Interventions: Discharge Summary Assessment (RN) Last Done: 09/09/19 08:03 DC Date/Time DO NOT enter until pt leaves facility: 09/09/19 09:46 Supervising Physician Co-Signing Physician Notes PA Supervision Note: I personally saw and examined the patient within 24 hours-the evening prior to her supervisor fabrication discharge-please see my physical exam note from the day prior. I verified all garrett points and agree with SHANA Andrade with the following exceptions and/or additions: None Coding Level of Care Code 56915 OBS Care - Discharge Diagnoses Dermatitis L30.9 Cellulitis L03.115 Laterality: right Site of cellulitis: extremity Site of cellulitis of extremity: lower extremity UTI (urinary tract infection) N39.0 Lymphedema I89.0 Breast abscess N61.1 Eosinophilia D72.1 Prediabetes R73.03 Menorrhagia N92.0 Obesity E66.9 Anxiety F41.9 Tobacco dependency F17.200 DVT prophylaxis Z29.9
[2019-09-08] MEDS: ACETAMINOPHEN 325 MG TAB PO PRN (19:31)
[2019-09-09 06:03] LABS: Basophils # (auto) 0.08 K/uL (0-0.2); Basophils % (auto) 0.6 %; Eosinophils # (auto) 0.89 K/uL (0-0.5); Eosinophils % (auto) 6.7 %; Hematocrit (blood only) 45.1 % (37-47); Hemoglobin 14.9 g/dL (12.0-16.0); Immature Granulocytes # (auto) 0.09 K/uL (0.00-0.02); Immature Granulocytes % (auto) 0.7 %; Lymphocytes # (auto) 4.18 K/uL (1.2-3.4); Lymphocytes % (auto) 31.3 %; Mean Corpuscular Hemoglobin 27.4 pg (25-34); Mean Corpuscular Volume 83.1 fL (80-100); Mean Platelet Volume 9.5 fL (7.4-10.4); Monocytes # (auto) 1.15 K/uL (0.11-0.59); Monocytes % (auto) 8.6 %; Neutrophils # (auto) 6.96 K/uL (1.4-6.5); Neutrophils % (auto) 52.1 %; Platelet Count 380 K/uL (130-400); RDW Coefficient of Variation 15.9 % (11.5-14.5); RDW Standard Deviation 47.1 fL (36.4-46.3); Red Blood Count 5.43 M/uL (4.2-5.4); White Blood Count 13.35 K/uL (4.8-10.8)
[2019-09-09 06:36] LABS: BUN Creatinine Ratio 28.5 (10-20); Calcium 8.8 mg/dl (8.5-10.1); Creatinine Clr Calc Pharmacy 230.5 ml/min; Est GFR (African American) 140.7; Est GFR (Non-African American) 121.4
[2019-09-09] MEDS: BUSPIRONE HCL 7.5 MG TAB PO SCH (08:42)
[2019-09-09] MEDS: FAMOTIDINE 20 MG TAB PO SCH (08:42)
[2019-09-09] MEDS: CETIRIZINE HCL 10 MG TABLET PO SCH (08:42)
[2019-09-09] MEDS: POTASSIUM CHLORIDE 10 MEQ TABCR PO SCH (08:42)
[2019-09-09] MEDS: ENOXAPARIN INJ 40 MG/0.4 ML SYR SQ SCH (08:43)
[2019-09-09] MEDS: NICOTINE 7 MG/24 HR TDSY TD SCH (08:43)
[2019-09-09] MEDS ORDERED: predniSONE 10 MG TABLET PO SCH (09:00)
== END 2019-09-09 09:46 | disposition home or self-care (01) ==
LOC: ED 12:05 → 2W 12:05 → SUATTDRO 16:22 → 2W 18:23 → 3N 22:20